=== PATIENT | female | born 1950 | race Caucasian/White ===

== ENCOUNTER 2018-04-29 01:09 | Inpatient (IN) | payer BC, OTHER ==
[2018-04-29 01:18] VITALS: BMI 27.3
--- NOTE | 2018-04-29 01:25 | PDOC ---
History of Present Illness - History of Present Illness Initial Comments: 04/29/18 01:42 The patient is a 67 year old female with PMH of dyslipidemia and HTN presented to ED complaining of nausea and vomiting. Approximately 3 hours ago she started having neck pain and vomited multiple times, it was non bloody non bilious. The patient states that she was in her normal state of health yesterday and her symptoms started suddenly. On arrival to ED, she is complaining of neck pain, stomach pain, N/V and states that she "doesn't feel her body". She denies fever, chills, palpitations, chest pain, changing her diet, sick contacts, diarrhea. Timing/Duration: 1-3 hours Severity: moderate Associated Symptoms: reports: headaches, nausea/vomiting, other (abdominal pain) <Gloria Cramer - Last Filed: 04/29/18 03:06> <Marshal Muñiz - Last Filed: 04/29/18 06:43> - General Chief Complaint: Nausea/Vomiting Stated Complaint: WEAKNESS,VOMITING Past History - Past Medical History HTN: Yes Hypercholesterolemia: Yes - Suicide/Smoking/Psychosocial Hx Smoking Status: No Smoking History: Never smoked Have you smoked in the past 12 months: No Number of Cigarettes Smoked Daily: 0 Cigars Per Day: 0 Information on smoking cessation initiated: No Hx Alcohol Use: No Drug/Substance Use Hx: No <Gloria Cramer - Last Filed: 04/29/18 03:06> <Marshal Muñiz - Last Filed: 04/29/18 06:43> - Past Medical History Allergies/Adverse Reactions: Allergies Allergy/AdvReac Type Severity Reaction Status Date / Time Penicillins Allergy Rash Verified 04/29/18 01:13 Home Medications: Ambulatory Orders Ciprofloxacin [Cipro -] 500 mg PO BID #14 tablet 06/20/11 Brimonidine Tartrate/Timolol [Combigan 0.2%-0.5% Eye Drops] 15 ml OP BID Brinzolamide [Azopt] 15 ml OU TID 04/29/18 Donepezil HCl 10 mg PO HS 04/29/18 Review of Systems - Review of Systems Able to Perform ROS?: Yes Constitutional: No: Symptoms Reported HEENTM: No: Symptoms Reported Respiratory: No: Symptoms reported Cardiac (ROS): No: Symptoms Reported ABD/GI: Yes: Symptoms Reported, See HPI, Nausea, Vomiting. No: Diarrhea : No: Symptoms Reported Musculoskeletal: Yes: Symptoms Reported, Neck Pain Integumentary: No: Symptoms Reported Neurological: Yes: Symptoms reported, Headache <EyadJavierteresitaGloria - Last Filed: 04/29/18 03:06> *Physical Exam - Vital Signs Last Vital Signs Temp Pulse Resp BP Pulse Ox 97.4 F L 52 L 18 174/70 H 95 04/29/18 01:13 04/29/18 01:13 04/29/18 01:13 04/29/18 01:13 04/29/18 01:13 - Physical Exam General Appearance: Yes: Nourished, Appropriately Dressed HEENT: positive: EOMI, MIKE, Normal Voice Neck: negative: Tender (mild tenderness to palpation) Respiratory/Chest: positive: Lungs Clear, Normal Breath Sounds. negative: Crackles, Wheezing Cardiovascular: positive: Regular Rhythm, S1, S2. negative: Murmur Gastrointestinal/Abdominal: positive: Soft, Decreased BS. negative: Guarding, Rebound, Tenderness Musculoskeletal: positive: Normal Inspection Neurologic: positive: Fully Oriented, Alert. negative: Facial Droop <JatinderShahidateresitaGloria - Last Filed: 04/29/18 03:06> - Vital Signs Last Vital Signs Temp Pulse Resp BP Pulse Ox 97.8 F 63 16 136/65 98 04/29/18 06:33 04/29/18 06:33 04/29/18 06:33 04/29/18 06:33 04/29/18 06:33 <Marshal Muñiz - Last Filed: 04/29/18 06:43> Moderate Sedation - Procedure Monitoring Vital Signs: Procedure Monitoring Vital Signs Temperature 97.4 F L 04/29/18 01:13 Pulse Rate 52 L 04/29/18 01:13 Respiratory Rate 18 04/29/18 01:13 Blood Pressure 174/70 H 04/29/18 01:13 O2 Sat by Pulse Oximetry (%) 95 04/29/18 01:13 <AliaAbebateresitaGloria - Last Filed: 04/29/18 03:06> - Procedure Monitoring Vital Signs: Procedure Monitoring Vital Signs Temperature 97.8 F 04/29/18 06:33 Pulse Rate 63 04/29/18 06:33 Respiratory Rate 16 04/29/18 06:33 Blood Pressure 136/65 04/29/18 06:33 O2 Sat by Pulse Oximetry (%) 98 04/29/18 06:33 <Marshal Muñiz - Last Filed: 04/29/18 06:43> ED Treatment Course - LABORATORY CBC & Chemistry Diagram: 04/29/18 01:34 04/29/18 01:34 <Gloria Cramer - Last Filed: 04/29/18 03:06> - LABORATORY CBC & Chemistry Diagram: 04/29/18 01:34 04/29/18 01:34 - ADDITIONAL ORDERS Additional order review: Laboratory Results 04/29/18 04/29/18 01:34 01:34 PT with INR 11.20 INR 0.95 Sodium 136 Potassium 3.5 Chloride 100 Carbon Dioxide 28 Anion Gap 8 BUN 21 H Creatinine 0.9 Creat Clearance w eGFR > 60 Random Glucose 213 H Calcium 9.0 Total Bilirubin 0.2 AST 24 ALT 30 Alkaline Phosphatase 74 Creatine Kinase 97 Troponin I < 0.02 Total Protein 7.3 Albumin 3.5 Lipase 2586 H 04/29/18 01:34 RBC 4.64 MCV 85.8 MCHC 34.9 RDW 13.1 MPV 9.9 Neutrophils % 61.0 Lymphocytes % 29.8 Monocytes % 6.1 Eosinophils % 2.1 Basophils % 1.0 - RADIOLOGY Radiology Studies Ordered: Category Date Time Status HEAD CT WITHOUT CONTRAST [CT] Stat CT Scan 04/29/18 02:26 Taken CHEST X-RAY PORTABLE* [RAD] Stat Radiology 04/29/18 01:38 Taken - Medications Given in the ED: ED Medications Discontinued Medications Generic Name Dose Route Start Last Admin Trade Name Freq PRN Reason Stop Dose Admin Al Hydroxide/Mg Hydroxide 30 ml 04/29/18 01:53 04/29/18 02:30 Mylanta Suspension - PO 04/29/18 01:54 30 ml ONCE ONE Administration Famotidine/Sodium Chloride 20 50 mls @ 100 mls/hr 04/29/18 01:53 04/29/18 02: 30 mg/ Miscellaneous IVPB 04/29/18 02:22 100 mls/hr ONCE ONE Administration Meclizine HCl 25 mg 04/29/18 02:35 04/29/18 03:01 Antivert - PO 04/29/18 02:36 25 mg ONCE ONE Administration Ondansetron HCl 4 mg 04/29/18 01:38 04/29/18 01:43 Zofran Injection IVPB 04/29/18 01:39 4 mg ONCE ONE Administration <Marshal Muñiz - Last Filed: 04/29/18 06:43> Medical Decision Making - Medical Decision Making 04/29/18 01:52 The patient presented to ED actively vomiting multiple times and complaining of neck pain and abdominal pain. We ordered EKG: NSR, bradycardia 56 bpm, nonsecific st changes in anterior leads, CBC, CMP, UA, cardiac profile, lipase and US of her abdomen. Differential diagnosis include gastroenteritis/cholecystitis/ACS/pancreatitis. 04/29/18 01:54 She was given NS and Zofran, Famotidine, Mylanta for nausea. 04/29/18 02:00 04/29/18 02:58 US nl, no cholelithiasis, obstruction, signs of pancreatitis. CTA was ordered for neck pain to r/o dissection with presentation of neck pain, weakness and N/ V. CBC with elevated WBC to 17, Lipase elevated to 2580, will add TG to collected labs, Amaris score low 2, we will microblog hospitalist for admission. <Gloria Cramer - Last Filed: 04/29/18 03:06> *DC/Admit/Observation/Transfer - Discharge Dispostion Decision to Admit order: Yes <Gloria Cramer - Last Filed: 04/29/18 03:06> <Marshal Muñiz - Last Filed: 04/29/18 06:43> Diagnosis at time of Disposition: Neck pain Pancreatitis Qualifiers: Chronicity: acute Pancreatitis type: other Acute pancreatitis complication: unspecified Qualified Code(s): K85.80 - Other acute pancreatitis without necrosis or infection
[2018-04-29] MEDS ORDERED: ONDANSETRON 4 MG/2 ML VIAL ONE (01:34)
[2018-04-29] MEDS ORDERED: ONDANSETRON 4 MG/2 ML VIAL IVPB ONE (01:38)
[2018-04-29 01:44] LABS: EOS % 2.1 % (0-4.5); HEMATOCRIT 39.8 % (32.4-45.2); HEMOGLOBIN 13.9 GM/dL (10.7-15.3); LYMPH % 29.8 % (8-40); MCH 29.9 pg (25.7-33.7); MCHC 34.9 g/dl (32.0-36.0); MEAN CELL VOLUME 85.8 fl (80-96); MEAN PLT VOLUME 9.9 fl (7.5-11.1); MONO % 6.1 % (3.8-10.2); PLATELET COUNT 360 K/MM3 (134-434); RBC 4.64 M/mm3 (3.60-5.2); RDW 13.1 % (11.6-15.6); WHITE BLOOD COUNT 17.8 K/mm3 (4.0-10.0)
[2018-04-29] MEDS ORDERED: FAMOTIDINE 20 MG/50 ML IVPB 20 MG in PREMIX 50 IVPB ONE (01:53)
[2018-04-29] MEDS ORDERED: MAG HYDROX/AL HYDROX/SIMETH -MYLANTA- ORAL SUSPENSION PO ONE (01:53)
--- NOTE | 2018-04-29 01:55 | PDOC ---
Attending Attestation - Resident Resident Name: Gloria Cramer - ED Attending Attestation I have performed the following: I have examined & evaluated the patient, The case was reviewed & discussed with the resident, I agree w/resident's findings & plan, Exceptions are as noted - HPI HPI: 04/29/18 01:54 67y F hx of HL, HTN, presents with n/v. Pt notes that approx 3 hers ago she had some neck pain, epgiastric pain, nausea/vomiting. denies any vision changes, dysarthria, focal weakness. but states she feels generally waek and her body feels heavy and 'doesnt feel her body'. pt endorses feeling lightheaded. denies any f/c, palpitations, cp, back pain, dairrhea, melena, bpr. GENERAL: The patient is awake, alert, and fully oriented, Nontoxic - in no acute distress. HEAD: Normocephalic, atraumatic. EYES: extraocular movements intact, sclera anicteric, conjunctiva clear, no nystagmus ENT: Normal voice, Moist mucous membranes. NECK: Normal range of motion, supple LUNGS: Breath sounds equal, clear to auscultation bilaterally. No wheezes, no rhonchi, no rales. HEART: Regular rate and rhythm, normal S1 and S2 without murmur, rub or gallop. ABDOMEN: Soft, nontender, normoactive bowel sounds. No guarding, no rebound. . No CVA tenderness EXTREMITIES: Normal range of motion, no edema. No clubbing or cyanosis. No cords, erythema, or tenderness. NEURO: Mental status: The patient is oriented x3. Cranial nerves: Cranial nerves II through XII are intact Motor: The upper extremities are 5 over 5 in all muscle groups. The lower extremities are 5 over 5 in all muscle groups. Negative pronator drift Sensation: Sensation is intact to light touch throughout. romberg negative Cerebellar: Sxatqn-ecfkyi-sghu is normal in both upper extremities. PSYCH: Normal mood, normal affect. SKIN: Warm, Dry, normal turgor, ddx is wide and includes but is not limited to vertigo, ?vertebral artery dissection, acs, pancreatitis, anemia, will ck cbc, cmp, trop, lipase will treat sypmtomatically with pepcid/maalox, zofran, will ck CTA neck and head - Physicial Exam PE: 05/03/18 07:25 see above - Medical Decision Making labs cw pancreatitis ct head neg will admit for further management Heart Score/ECG Review - ECG Impressions Comment:: 04/29/18 02:37 Twelve-lead EKG was performed and reviewed by me. There is normal sinus rhythm with a rate of [address] wave changes
[2018-04-29 02:06] LABS: INR 0.95 (0.83-1.09); PROTHROMBIN TIME (PATIENT) 11.2 SEC (9.7-13.0)
[2018-04-29] MEDS ORDERED: MAG HYDROX/AL HYDROX/SIMETH 30 ML UNIT-DOSE CUP ONE (02:22)
[2018-04-29] MEDS ORDERED: FAMOTIDINE 20 MG/50 ML IVPB 20 MG/50 ML MG IVPB ONE (02:22)
[2018-04-29] MEDS ORDERED: MECLIZINE HCL 25 MG TABLET (FP) PO ONE (02:35)
[2018-04-29] MEDS ORDERED: MECLIZINE HCL 25 MG TABLET (FP) ONE (02:36)
[2018-04-29 02:44] LABS: ALBUMIN 3.5 g/dl (3.4-5.0); ALK PHOS 74 U/L (45-117); ANION GAP 8 MMOL/L (8-16); BILIRUBIN,TOTAL 0.2 mg/dL (0.2-1); BLOOD UREA NITROGEN 21 mg/dL (7-18); CHLORIDE 100 mmol/L (98-107); CO2 28 mmol/L (21-32); CREATININE 0.9 mg/dL (0.55-1.3); GLUCOSE,RANDOM 213 mg/dL (74-106); LIPASE 2586 U/L (73-393); POTASSIUM 3.5 mmol/L (3.5-5.1); SGOT/AST 24 U/L (15-37); SGPT/ALT 30 U/L (13-61); SODIUM 136 mmol/L (136-145); TOT PROT 7.3 g/dl (6.4-8.2)
[2018-04-29] MEDS: LACTATED RINGERS SOLUTION 1,000 ML/1,000 ML INFUS.BAG IV SCH (03:22)
[2018-04-29] MEDS ORDERED: MORPHINE SULFATE 2 MG/ML VIAL IVPUSH PRN (04:02)
[2018-04-29] MEDS ORDERED: ONDANSETRON 4 MG/2 ML VIAL IVPUSH PRN (04:09)
[2018-04-29] MEDS ORDERED: hydrALAZINE HCL 20 MG/ML VIAL IVPUSH PRN (04:10)
--- NOTE | 2018-04-29 04:22 | HP ---
CHIEF COMPLAINT: nausea/vomiting PCP: HISTORY OF PRESENT ILLNESS: Patient is a 67 y/o F w/ PMHx HTN, HLD, presents w/ nausea and NBNB vomiting since 11 am on 04/28/18. Numerous episodes of violent, painful retching. Additionally c/o neck pain, abd pain, malaise, diffuse weakness, and inability to "feel my body." Additionally c/o vertiginous symptoms which may have been present chronically. Timeline of symptom onset is unclear as patient provides multiple mutually inconsistent histories. No fever, chills, CP, SOB, diarrhea, dysuria, no sick contacts. Had multiple episodes of vomiting and was screaming in pain in ED. N/V symptoms resolved with one dose of Zofran. On presentation, WBC 17.8, Lipase 2586, labs otherwise unremarkable. Abd US unremarkable. Patient was to undergo contrast CT and CTA neck with NCHCT but stated just prior to studies that she has severe contrast dye allergy. Underwent abd CT w/o contrast and NCHCT instead, results pending. Bedside doppler evaluation of carotid vessels was benign. Official carotid doppler study pending. ER course was notable for: (1) WBC 17.8 (2) Lipase 2586 (3) Recent Travel: PAST MEDICAL HISTORY: As per HPI PAST SURGICAL HISTORY: As per HPI Social History: Smoking: Alcohol: Drugs: Family History: Allergies Penicillins Allergy (Verified 04/29/18 01:13) Rash HOME MEDICATIONS: Home Medications Medication Instructions Recorded Ciprofloxacin [Cipro -] 500 mg PO BID #14 tablet 06/20/11 REVIEW OF SYSTEMS As per HPI PHYSICAL EXAMINATION Vital Signs - 24 hr 04/29/18 04/29/18 01:13 01:40 Temperature 97.4 F L 96.4 F L Pulse Rate 52 L Pulse Rate [ 57 L Right Radial] Respiratory 18 16 Rate Blood Pressure 174/70 H Blood Pressure 139/66 [Right Arm] O2 Sat by Pulse 95 95 Oximetry (%) GENERAL: A&Ox3, in moderate distress HEAD: NC/AT EYES: PERRLA, EOMI EARS, NOSE, THROAT: Ears normal, nares patent, oropharynx clear without exudates. Moist mucous membranes. NECK: No carotid bruit. Normal range of motion, supple without lymphadenopathy, JVD, or masses. LUNGS: CTA b/l HEART: RRR no m/r/g ABDOMEN: soft, non-distended, moderate epigastric tenderness UPPER EXTREMITIES: 2+ pulses, warm, well-perfused. No cyanosis. No clubbing. No peripheral edema. LOWER EXTREMITIES: 2+ pulses, warm, well-perfused. No calf tenderness. No peripheral edema. NEUROLOGICAL: machine deburrer, motor, sensory systems w/o focal deficit PSYCHIATRIC: Cooperative. Good eye contact. Appropriate mood and affect. SKIN: Warm, dry, normal turgor, no rashes or lesions noted, normal capillary refill Laboratory Results - last 24 hr 04/29/18 04/29/18 04/29/18 01:34 01:34 01:34 WBC 17.8 H RBC 4.64 Hgb 13.9 Hct 39.8 MCV 85.8 MCH 29.9 MCHC 34.9 RDW 13.1 Plt Count 360 MPV 9.9 Absolute Neuts (auto) 10.8 H Neutrophils % 61.0 Lymphocytes % 29.8 Monocytes % 6.1 Eosinophils % 2.1 Basophils % 1.0 Nucleated RBC % 0 PT with INR 11.20 INR 0.95 Sodium 136 Potassium 3.5 Chloride 100 Carbon Dioxide 28 Anion Gap 8 BUN 21 H Creatinine 0.9 Creat Clearance w eGFR > 60 Random Glucose 213 H Calcium 9.0 Total Bilirubin 0.2 AST 24 ALT 30 Alkaline Phosphatase 74 Creatine Kinase 97 Troponin I < 0.02 Total Protein 7.3 Albumin 3.5 Lipase 2586 H ASSESSMENT/PLAN: 67 y/o F w/ PMHx HTN, HLD p/w ~12 hours n/v, abd pain, neck pain. Lipase 2586, WBC 17.8, admitted for acute pancreatitis. #pancreatitis -NPO -LR @ 125 -morphine 2 q4h PRN -Zofran 4 q6h PRN -abd CT read pending -triglycerides pending #neck pain -carotid dopplers pending -cannot pursue CTA d/t dye allergy #vertigo -NCHCT read pending #HTN -unmedicated at home -no PO meds -no AV dheeraj blocking agents as patient has been mildly bradycardic -hydralazine PRN to maintain SBP < 160 #HLD -unmedicated at home -lipids pending #FEN -LR @ 125 -monitor and replete lytes -strictly NPO #PPx -DVT: heparin subq -GI: not indicated #code -full #dispo -admit to med/surg Visit type - Emergency Visit Emergency Visit: Yes Care time: The patient presented to the Emergency Department on the above date and was hospitalized for further evaluation of their emergent condition. - New Patient This patient is new to me today: Yes Date on this admission: 04/29/18 - Critical Care Critical Care patient: No
[2018-04-29 04:54] LABS: URINE APPEARANCE CLEAR; URINE BILIRUBIN NEGATIVE (<2.0 mg/dL); URINE COLOR LTYELLOW; URINE GLUCOSE (UA) 1+ (NEGATIVE); URINE KETONE NEGATIVE (NEGATIVE); URINE LEUK ESTERASE NEGATIVE (NEGATIVE); URINE NITRITE NEGATIVE (NEGATIVE); URINE PROTEIN NEGATIVE (NEGATIVE); URINE UROBILINOGEN NEGATIVE mg/dL (0.2-1.0)
--- NOTE | 2018-04-29 05:32 | PN ---
Teaching Attending Note Name of Resident: Tristan Villalobos ATTENDING PHYSICIAN STATEMENT I saw and evaluated the patient. I reviewed the resident's note and discussed the case with the resident. I agree with the resident's findings and plan as documented. SUBJECTIVE: Seen and examined; please see resident note for further historical details. This is a 67 y/o CF with a PMH significant for hypertension, hyperlipidemia, and glaucoma. She presents with nausea and vomitting following neck pain and this was all sudden onset; multiple episodes of bilious vomitting at home associated , nothing making better or worse. Abdomen is only tender to palpation and she denies any chest, abdomen pain at this time, only endorsing nausea and neck pain. Neck pain is worse with palpation and movement. No history of recent trauma, chiropractic manipulation, etc. There was concern in the ER for carotid A. dissection and when patient was going for head CT she was noted to have an allergy to contract so CT head and neck cancelled and US carotid b/l ordered. CT head was also ordered; it was completed but not read yet. CT abdomen and pelvis prelim without pathology which is equivocal to the CT (normal CBD, no stones). She was found to have an elevated lipase to 2500 range consistent with pancreatitis levels. 10 sys ROS done and negative aside from HPI PMH and PSH reviewed FH asked and noncontributory Socially denies alcoholabuse, tobacco abuse 10 sys ROS done and negative aside from HPI OBJECTIVE: VS, labs, imaging reviewed AAO, NAD, resting in bed in ER RRR s1/2 no mgr Tender in epigastrium, ND, +BS Neck is painful to move in all 4 directions with muscle pain elicited b/l to palpation. No LN. Trachea midline, no JVD No edema, +pulses CN2-12 wnl, no fnd Cooperative with normal mood and appropriate affect Labs show WBC 17, lipase 2586, rest of LFTs normal, Chemistry is unremarkable aside from the glucose of 213 CT head pending final read Preliminary read of CT abdomen pelvis reviewed Preliminary read of US with unremarkable anatomy ASSESSMENT AND PLAN: Mrs. Smith is a 67 y/o female presenting to the hospital with headache and neck pain with dizziness found to have an elevated lipase to levels consistent with pancreatitis alongside leukocytosis. 1) Likely acute pancreatitis -Patient's lipase >5 times upper limit of normal with unremarkable appearance of the pancreas on the CT and US. Elevated lipase this high in a non- pancreatic cause would be very rare but occurs n patients with renal disease ( which she doesnt have), cholecystitis (doesn't have), esophagitis (does't have) , and malignancy. Could be a delayed onset picture, as well. Can of course consider further imaging, but no need for STAT MRCP, etc. -Hydrating, NPO for now but advance as tolerated after a day of bowel rest. Not really having abdominal pain at rest but will get somewhat uncomfortable with palpation. Pain and nausea PRN management -Check lipid pannel. Reconcile medication list including OTCs. -No source of infection on imaging, etc. so we will avoid antibiotics at this time 2) Hypothermia -PRN warming; etiology likely related to underlying process 3) Neck Pain -No LN on palpation; bedside US exam was limited but not grossly abnormal. Will obtain carotid doppler given the concern for dissection listed in the prior notes, but her history isn't necessarily consistent with a vineet dissection picture. Could have pulled a muscle with wretching making this worse. She is not having issues swallowing, etc. Monitor exam, PRN pain control, and followup on imaging. 4) Dizziness -Due to neck pain and vomitting I didn't ambulate her. Not dizzy at rest, not endorsing baseline symptoms of vertigo. ER ordered head CT which is pending for r/o f any cerebellar process. If concern persists and negative CT consider further imaging. I should note she never syncopized, etc. She is not dizzy at rest. Carotid dopplers would be revealing. Monitor on tele for any arrhythmias for 24 hours then DC. May also simplybe from #1 with vomitting. Check orthostatics. 5) HTN -Unmedicated at home; monitor and startamlodipine if needed in accordance with GDMT 6) HLD -No home meds; checking lipids for #1 which will also help with this. 7) Leukocytosis -No source identified; with hypothermia concern for infection but no source is identified. Checking ESR and CRP, followup blood cultures. Neck pain isn't classically meningeal to any stretch, CT abd preliminarily is negative, no rashes or skin breakdown, no dysuria with negative UA. If persistent/worsening consider further workup. FENA -LR@125 -PRN monitor/replete -NPO -As tolerated Full Code
[2018-04-29] MEDS: HEPARIN NA (PORCINE) 5,000 UNITS/ML 1ML VIAL SQ SCH ×3 (06:07→22:18)
[2018-04-29 07:47] LABS: BASO % 0.8 % (0-2.0); EOS % 0.1 % (0-4.5); HEMATOCRIT 38.9 % (32.4-45.2); HEMOGLOBIN 12.8 GM/dL (10.7-15.3); LYMPH % 18.6 % (8-40); MCH 28.6 pg (25.7-33.7); MEAN CELL VOLUME 86.9 fl (80-96); MEAN PLT VOLUME 9.9 fl (7.5-11.1); MONO % 2.4 % (3.8-10.2); NEUT % 78.1 % (42.8-82.8); PLATELET COUNT 264 K/MM3 (134-434); RBC 4.48 M/mm3 (3.60-5.2); RDW 13.3 % (11.6-15.6); WHITE BLOOD COUNT 10.9 K/mm3 (4.0-10.0)
[2018-04-29 08:27] LABS: CHOLESTEROL 227 mg/dL (50-200); HDL CHOLESTEROL 49 mg/dL (40-60); TRIGLYCERIDES 118 mg/dL (0-150)
[2018-04-29 08:39] LABS: ALBUMIN 3.3 g/dl (3.4-5.0); ALK PHOS 66 U/L (45-117); ANION GAP 9 MMOL/L (8-16); BILIRUBIN,TOTAL 0.3 mg/dL (0.2-1); BLOOD UREA NITROGEN 17 mg/dL (7-18); CALCIUM 8.3 mg/dL (8.5-10.1); CHLORIDE 103 mmol/L (98-107); CO2 25 mmol/L (21-32); CREATININE 0.7 mg/dL (0.55-1.3); GLUCOSE,RANDOM 121 mg/dL (74-106); MAGNESIUM 1.9 mg/dL (1.8-2.4); PHOSPHOROUS 3.2 mg/dL (2.5-4.9); POTASSIUM 3.6 mmol/L (3.5-5.1); SGOT/AST 33 U/L (15-37); SGPT/ALT 41 U/L (13-61); SODIUM 137 mmol/L (136-145); TOT PROT 6.6 g/dl (6.4-8.2)
[2018-04-29 08:43] LABS: INR 0.94 (0.83-1.09); PROTHROMBIN TIME (PATIENT) 11.1 SEC (9.7-13.0)
[2018-04-29 08:46] LABS: ACTIVATED PTT 26.7 SECONDS (25.2-36.5)
--- NOTE | 2018-04-29 10:13 | EKG ---
Test Reason : Blood Pressure : / mmHG Vent. Rate : 056 BPM Atrial Rate : 056 BPM P-R Int : 158 ms QRS Dur : 084 ms QT Int : 482 ms P-R-T Axes : 065 093 059 degrees QTc Int : 465 ms SINUS BRADYCARDIA RIGHTWARD AXIS NONSPECIFIC ST AND T WAVE ABNORMALITY ABNORMAL ECG Confirmed by HORTENCIA PALMER MD ([id number]) on 04/29/2018 10:12:51 AM Referred By: Confirmed By:HORTENCIA PALMER MD
--- NOTE | 2018-04-29 15:27 | PN ---
Physical Exam: SUBJECTIVE: Patient seen and examined OBJECTIVE: Vital Signs Period Temp Pulse Resp BP Sys/Ervin Pulse Ox Last 24 Hr 95.6 F-98.6 F 52-73 16-18 110-174/55-77 95-98 GENERAL: The patient is awake, alert, and fully oriented, in no acute distress. HEAD: Normal with no signs of trauma. EYES: PERRL, extraocular movements intact, sclera anicteric, conjunctiva clear. No ptosis. ENT: Ears normal, nares patent, oropharynx clear without exudates, moist mucous membranes. NECK: Trachea midline, full range of motion, supple. LUNGS: Breath sounds equal, clear to auscultation bilaterally, no wheezes, no crackles, no accessory muscle use. HEART: Regular rate and rhythm, S1, S2 without murmur, rub or gallop. ABDOMEN: Soft, nontender, nondistended, normoactive bowel sounds, no guarding, no rebound, no hepatosplenomegaly, no masses. EXTREMITIES: 2+ pulses, warm, well-perfused, no edema. NEUROLOGICAL: Cranial nerves II through XII grossly intact. Normal speech, gait not observed. PSYCH: Normal mood, normal affect. SKIN: Warm, dry, normal turgor, no rashes or lesions noted Laboratory Results - last 24 hr 04/29/18 04/29/18 04/29/18 01:34 01:34 01:34 WBC 17.8 H RBC 4.64 Hgb 13.9 Hct 39.8 MCV 85.8 MCH 29.9 MCHC 34.9 RDW 13.1 Plt Count 360 MPV 9.9 Absolute Neuts (auto) 10.8 H Neutrophils % 61.0 Lymphocytes % 29.8 Monocytes % 6.1 Eosinophils % 2.1 Basophils % 1.0 Nucleated RBC % 0 Platelet Comment ESR PT with INR 11.20 INR 0.95 PTT (Actin FS) Sodium 136 Potassium 3.5 Chloride 100 Carbon Dioxide 28 Anion Gap 8 BUN 21 H Creatinine 0.9 Creat Clearance w eGFR > 60 Random Glucose 213 H Calcium 9.0 Phosphorus Magnesium Total Bilirubin 0.2 AST 24 ALT 30 Alkaline Phosphatase 74 Creatine Kinase 97 Troponin I < 0.02 Total Protein 7.3 Albumin 3.5 Triglycerides Cholesterol Total LDL Cholesterol HDL Cholesterol Lipase 2586 H Urine Color Urine Appearance Urine pH Ur Specific [place] Urine Protein Urine Glucose (UA) Urine Ketones Urine Blood Urine Nitrite Urine Bilirubin Urine Urobilinogen Ur Leukocyte Esterase 04/29/18 04/29/18 04/29/18 04:41 05:17 06:00 WBC RBC Hgb Hct MCV MCH MCHC RDW Plt Count MPV Absolute Neuts (auto) Neutrophils % Lymphocytes % Monocytes % Eosinophils % Basophils % Nucleated RBC % Platelet Comment ESR PT with INR INR PTT (Actin FS) Sodium 137 Potassium 3.6 Chloride 103 Carbon Dioxide 25 Anion Gap 9 BUN 17 Creatinine 0.7 Creat Clearance w eGFR > 60 Random Glucose 121 H Calcium 8.3 L Phosphorus 3.2 Magnesium 1.9 Total Bilirubin 0.3 AST 33 ALT 41 Alkaline Phosphatase 66 Creatine Kinase Troponin I Total Protein 6.6 Albumin 3.3 L Triglycerides 122 Cholesterol Total LDL Cholesterol HDL Cholesterol Lipase Urine Color Ltyellow Urine Appearance Clear Urine pH 7.0 Ur Specific [place] 1.015 Urine Protein Negative Urine Glucose (UA) 1+ H Urine Ketones Negative Urine Blood Negative Urine Nitrite Negative Urine Bilirubin Negative Urine Urobilinogen Negative Ur Leukocyte Esterase Negative 04/29/18 04/29/18 04/29/18 06:00 07:05 07:05 WBC 10.9 H RBC 4.48 Hgb 12.8 Hct 38.9 MCV 86.9 MCH 28.6 MCHC 33.0 RDW 13.3 Plt Count 264 D MPV 9.9 Absolute Neuts (auto) 8.5 H Neutrophils % 78.1 D Lymphocytes % 18.6 D Monocytes % 2.4 L Eosinophils % 0.1 D Basophils % 0.8 Nucleated RBC % 0 Platelet Comment No clumping noted ESR 25 PT with INR INR PTT (Actin FS) Sodium Potassium Chloride Carbon Dioxide Anion Gap BUN Creatinine Creat Clearance w eGFR Random Glucose Calcium Phosphorus Magnesium Total Bilirubin AST ALT Alkaline Phosphatase Creatine Kinase Troponin I Total Protein Albumin Triglycerides 118 Cholesterol 227 H Total LDL Cholesterol 157 H HDL Cholesterol 49 Lipase Urine Color Urine Appearance Urine pH Ur Specific [place] Urine Protein Urine Glucose (UA) Urine Ketones Urine Blood Urine Nitrite Urine Bilirubin Urine Urobilinogen Ur Leukocyte Esterase 04/29/18 04/29/18 07:05 07:05 WBC RBC Hgb Hct MCV MCH MCHC RDW Plt Count MPV Absolute Neuts (auto) Neutrophils % Lymphocytes % Monocytes % Eosinophils % Basophils % Nucleated RBC % Platelet Comment ESR PT with INR 11.10 INR 0.94 PTT (Actin FS) 26.7 Sodium Potassium Chloride Carbon Dioxide Anion Gap BUN Creatinine Creat Clearance w eGFR Random Glucose Calcium Phosphorus Magnesium Total Bilirubin AST ALT Alkaline Phosphatase Creatine Kinase Troponin I < 0.02 Total Protein Albumin Triglycerides Cholesterol Total LDL Cholesterol HDL Cholesterol Lipase Urine Color Urine Appearance Urine pH Ur Specific [place] Urine Protein Urine Glucose (UA) Urine Ketones Urine Blood Urine Nitrite Urine Bilirubin Urine Urobilinogen Ur Leukocyte Esterase Active Medications Generic Name Dose Route Start Last Admin Trade Name Freq PRN Reason Stop Dose Admin Heparin Sodium (Porcine) 5,000 unit 04/29/18 06:00 04/29/18 13:28 Heparin - SQ Not Given TID ABBY Hydralazine HCl 10 mg 04/29/18 04:10 Apresoline Injection - IVPUSH Q4H PRN SBP > 160 Lactated Ringer's 1,000 ml in 1,000 mls @ 125 mls/hr 04/29/18 03:15 04/29/18 03:22 Lactated Ringers Solution IV 125 mls/hr ASDIR ABBY Administration Morphine Sulfate 2 mg 04/29/18 04:02 Morphine Sulfate IVPUSH Q4H PRN PAIN LEVEL 6-10 Ondansetron HCl 4 mg 04/29/18 04:09 Zofran Injection IVPUSH Q6H PRN NAUSEA ASSESSMENT/PLAN:
--- NOTE | 2018-04-29 17:34 | PN ---
Teaching Attending Note Name of Resident: Christopher Squires ATTENDING PHYSICIAN STATEMENT I saw and evaluated the patient. I reviewed the resident's note and discussed the case with the resident. I agree with the resident's findings and plan as documented. SUBJECTIVE: patient still with abdominal pain but improved. No cp or sob OBJECTIVE: Gen: nad CV: rrr w/o m/r/g Pulm: ctab w/o w/r/r Abd: +bs, s/nd, TTP in epigastric region Ext: no c/c/e ASSESSMENT AND PLAN: 1. Pancreatitis 2. HTN 3. HLD 4. Dementia -npo -aggressive hydration with LR -pain control -trend lipase -advance diet as tolerated -not on HTN on HLD medications, will follow up -hold donepezil currently Problem List - Problems (1) HLD (hyperlipidemia) Code(s): E78.5 - HYPERLIPIDEMIA, UNSPECIFIED (2) HTN (hypertension) Code(s): I10 - ESSENTIAL (PRIMARY) HYPERTENSION (3) Dementia Code(s): F03.90 - UNSPECIFIED DEMENTIA WITHOUT BEHAVIORAL DISTURBANCE (4) Pancreatitis Code(s): K85.90 - ACUTE PANCREATITIS WITHOUT NECROSIS OR INFECTION, UNSP Qualifiers: Chronicity: acute Pancreatitis type: other Acute pancreatitis complication: unspecified Qualified Code(s): K85.80 - Other acute pancreatitis without necrosis or infection
[2018-04-30] MEDS: LACTATED RINGERS SOLUTION 1,000 ML/1,000 ML INFUS.BAG IV SCH ×2 (00:05→05:48)
[2018-04-30] MEDS: HEPARIN NA (PORCINE) 5,000 UNITS/ML 1ML VIAL SQ SCH ×3 (05:48→22:03)
[2018-04-30 06:41] LABS: BASO % 1.2 % (0-2.0); EOS % 2.9 % (0-4.5); HEMATOCRIT 40.1 % (32.4-45.2); HEMOGLOBIN 13.1 GM/dL (10.7-15.3); LYMPH % 25.1 % (8-40); MCH 28.4 pg (25.7-33.7); MCHC 32.7 g/dl (32.0-36.0); MEAN CELL VOLUME 86.6 fl (80-96); MEAN PLT VOLUME 10.2 fl (7.5-11.1); MONO % 6.2 % (3.8-10.2); NEUT % 64.6 % (42.8-82.8); PLATELET COUNT 254 K/MM3 (134-434); RBC 4.63 M/mm3 (3.60-5.2); RDW 13.2 % (11.6-15.6); WHITE BLOOD COUNT 10.6 K/mm3 (4.0-10.0)
[2018-04-30 06:59] LABS: ALBUMIN 3.2 g/dl (3.4-5.0); ALK PHOS 66 U/L (45-117); ANION GAP 7 MMOL/L (8-16); BILIRUBIN,TOTAL 0.4 mg/dL (0.2-1); BLOOD UREA NITROGEN 11 mg/dL (7-18); CALCIUM 8.5 mg/dL (8.5-10.1); CHLORIDE 104 mmol/L (98-107); CO2 28 mmol/L (21-32); CREATININE 0.7 mg/dL (0.55-1.3); GLUCOSE,RANDOM 81 mg/dL (74-106); LIPASE 721 U/L (73-393); POTASSIUM 3.5 mmol/L (3.5-5.1); SGOT/AST 26 U/L (15-37); SGPT/ALT 35 U/L (13-61); SODIUM 139 mmol/L (136-145); TOT PROT 6.6 g/dl (6.4-8.2)
--- NOTE | 2018-04-30 11:34 | PN ---
Progress Note, Physician Chief Complaint: Ms Smith complains of sore throat. Denies cp, sob, n/v. Asking to eat. - Current Medication List Current Medications: Active Medications Heparin Sodium (Porcine) (Heparin -) 5,000 unit SQ TID REPLACED BY [facility] Last Admin: 04/30/18 05:48 Dose: 5,000 unit Hydralazine HCl (Apresoline Injection -) 10 mg IVPUSH Q4H PRN PRN Reason: SBP > 160 Lactated Ringer's (Lactated Ringers Solution) 1,000 ml in 1,000 mls @ 125 mls/ hr IV ASDIR REPLACED BY [facility] Last Admin: 04/30/18 05:48 Dose: 125 mls/hr Morphine Sulfate (Morphine Sulfate) 2 mg IVPUSH Q4H PRN PRN Reason: PAIN LEVEL 6-10 Ondansetron HCl (Zofran Injection) 4 mg IVPUSH Q6H PRN PRN Reason: NAUSEA - Objective Vital Signs: Vital Signs Temperature 36.9 C 04/30/18 06:00 Pulse Rate 67 04/30/18 06:00 Respiratory Rate 20 04/30/18 06:00 Blood Pressure 127/60 04/30/18 06:00 O2 Sat by Pulse Oximetry (%) 98 04/29/18 21:00 Constitutional: Yes: Well Nourished, No Distress, Calm Cardiovascular: Yes: Regular Rate and Rhythm. No: Gallop, Murmur, Rub Respiratory: Yes: Regular, CTA Bilaterally. No: Rales, Rhonchi, Wheezes Gastrointestinal: Yes: Normal Bowel Sounds, Soft. No: Distention, Tenderness Extremities: Yes: WNL Edema: No Labs: CBC, BMP 04/30/18 05:30 04/30/18 05:30 INR, PTT INR 0.94 (0.83-1.09) 04/29/18 07:05 Problem List - Problems (1) Pancreatitis Assessment/Plan: -much improved -advance diet -if tolerates regular diet, stop IVF Code(s): K85.90 - ACUTE PANCREATITIS WITHOUT NECROSIS OR INFECTION, UNSP Qualifiers: Chronicity: acute Pancreatitis type: other Acute pancreatitis complication: unspecified Qualified Code(s): K85.80 - Other acute pancreatitis without necrosis or infection (2) HLD (hyperlipidemia) Assessment/Plan: -outpatient follow up Code(s): E78.5 - HYPERLIPIDEMIA, UNSPECIFIED (3) HTN (hypertension) Assessment/Plan: -controlled Code(s): I10 - ESSENTIAL (PRIMARY) HYPERTENSION (4) Dementia Assessment/Plan: -will restart donepezil Code(s): F03.90 - UNSPECIFIED DEMENTIA WITHOUT BEHAVIORAL DISTURBANCE
[2018-04-30] MEDS: ACETAMINOPHEN 325 MG TABLET (FP) PO PRN (16:13)
[2018-04-30] MEDS ORDERED: PATIENT'S OWN MEDICATION (NON-FORMULARY) (Brinzolamide [Azopt] 15 ML) OU SCH (22:00)
[2018-04-30] MEDS ORDERED: PATIENT'S OWN MEDICATION (NON-FORMULARY) (Brimonidine Tartrate/Timolol [Combigan 0.2%-0.5% OP SCH (22:00)
[2018-04-30] MEDS: BRIMONIDINE TARTRATE 0.2% OPHTHALMIC 5 ML BOTTLE OU SCH (22:01)
[2018-04-30] MEDS: TIMOLOL 0.5% OPHTHALMIC SOL 5 ML BOTTLE OU SCH (22:02)
[2018-04-30] MEDS: DONEPEZIL HCL 10 MG TABLET (FP) PO SCH (22:03)
[2018-05-01] MEDS: HEPARIN NA (PORCINE) 5,000 UNITS/ML 1ML VIAL SQ SCH ×3 (05:39→21:32)
[2018-05-01] MEDS: BENZOCAINE/MENTH/CETYLPYRD CL 1 EACH LOZENGE MM PRN ×2 (06:33→20:17)
[2018-05-01 06:34] LABS: BASO % 1.2 % (0-2.0); EOS % 5.5 % (0-4.5); HEMATOCRIT 37.2 % (32.4-45.2); LYMPH % 35.7 % (8-40); MCH 28.3 pg (25.7-33.7); MCHC 32.3 g/dl (32.0-36.0); MEAN CELL VOLUME 87.4 fl (80-96); MEAN PLT VOLUME 10.1 fl (7.5-11.1); MONO % 8.7 % (3.8-10.2); NEUT % 48.9 % (42.8-82.8); PLATELET COUNT 239 K/MM3 (134-434); RBC 4.26 M/mm3 (3.60-5.2); RDW 13.5 % (11.6-15.6); WHITE BLOOD COUNT 7.9 K/mm3 (4.0-10.0)
[2018-05-01 07:50] LABS: ALK PHOS 58 U/L (45-117); ANION GAP 10 MMOL/L (8-16); BILIRUBIN,DIRECT 0.1 mg/dL (0.0-0.2); BILIRUBIN,TOTAL 0.4 mg/dL (0.2-1); BLOOD UREA NITROGEN 8 mg/dL (7-18); CALCIUM 8.5 mg/dL (8.5-10.1); CHLORIDE 106 mmol/L (98-107); CO2 26 mmol/L (21-32); CREATININE 0.6 mg/dL (0.55-1.3); GLUCOSE,RANDOM 88 mg/dL (74-106); LIPASE 404 U/L (73-393); PHOSPHOROUS 3.7 mg/dL (2.5-4.9); POTASSIUM 3.9 mmol/L (3.5-5.1); SGOT/AST 28 U/L (15-37); SGPT/ALT 35 U/L (13-61); SODIUM 142 mmol/L (136-145)
--- NOTE | 2018-05-01 11:06 | PN ---
Progress Note, Physician Chief Complaint: Ms Smith had some abdominal pain with eating this am but tolerated a regular diet last night. No cp, sob, n/v. - Current Medication List Current Medications: Active Medications Acetaminophen (Tylenol -) 650 mg PO Q4H PRN PRN Reason: FEVER Last Admin: 04/30/18 16:13 Dose: 650 mg Benzocaine/Menthol (Cepacol Lozenge -) 1 each MM PRN PRN PRN Reason: SORE THROAT Last Admin: 05/01/18 06:33 Dose: 1 each Brimonidine Tartrate (Alphagan 0.2% -) 1 drop OU BID [facility] Last Admin: 04/30/18 22:01 Dose: 1 drop Donepezil HCl (Aricept -) 10 mg PO HS [facility] Last Admin: 04/30/18 22:03 Dose: 10 mg Heparin Sodium (Porcine) (Heparin -) 5,000 unit SQ TID [facility] Last Admin: 05/01/18 05:39 Dose: 5,000 unit Hydralazine HCl (Apresoline Injection -) 10 mg IVPUSH Q4H PRN PRN Reason: SBP > 160 Non-Formulary Medication (Brinzolamide [Azopt]) 15 ml OU TID [facility] Ondansetron HCl (Zofran Injection) 4 mg IVPUSH Q6H PRN PRN Reason: NAUSEA Timolol Maleate (Timoptic 0.5%) 1 drop OU BID [facility] Last Admin: 04/30/18 22:02 Dose: 1 drop - Objective Vital Signs: Vital Signs Temperature 37.1 C 05/01/18 05:49 Pulse Rate 59 L 05/01/18 05:49 Respiratory Rate 20 05/01/18 05:49 Blood Pressure 135/55 L 05/01/18 05:49 O2 Sat by Pulse Oximetry (%) 96 04/30/18 21:00 Constitutional: Yes: Well Nourished, No Distress, Calm Cardiovascular: Yes: Regular Rate and Rhythm. No: Gallop, Murmur, Rub Respiratory: Yes: Regular, CTA Bilaterally. No: Rales, Rhonchi, Wheezes Gastrointestinal: Yes: Normal Bowel Sounds, Soft. No: Distention, Tenderness Extremities: Yes: WNL Edema: No Labs: CBC, BMP 05/01/18 05:30 05/01/18 05:30 INR, PTT INR 0.94 (0.83-1.09) 04/29/18 07:05 Problem List - Problems (1) Pancreatitis Code(s): K85.90 - ACUTE PANCREATITIS WITHOUT NECROSIS OR INFECTION, UNSP Qualifiers: Chronicity: acute Pancreatitis type: other Acute pancreatitis complication: unspecified Qualified Code(s): K85.80 - Other acute pancreatitis without necrosis or infection (2) HLD (hyperlipidemia) Code(s): E78.5 - HYPERLIPIDEMIA, UNSPECIFIED (3) HTN (hypertension) Code(s): I10 - ESSENTIAL (PRIMARY) HYPERTENSION (4) Dementia Code(s): F03.90 - UNSPECIFIED DEMENTIA WITHOUT BEHAVIORAL DISTURBANCE Assessment/Plan (1) Pancreatitis Assessment/Plan: -had some abdominal pain with breakfast this morning -decrease LR to 75ml/hr -will continue regular diet to see if tolerates -if does not, will place back on clear liquid -check lipase in am -if improved, discharge tomorrow Code(s): K85.90 - ACUTE PANCREATITIS WITHOUT NECROSIS OR INFECTION, UNSP Qualifiers: Chronicity: acute Pancreatitis type: other Acute pancreatitis complication: unspecified Qualified Code(s): K85.80 - Other acute pancreatitis without necrosis or infection (2) HLD (hyperlipidemia) Assessment/Plan: -outpatient follow up Code(s): E78.5 - HYPERLIPIDEMIA, UNSPECIFIED (3) HTN (hypertension) Assessment/Plan: -controlled Code(s): I10 - ESSENTIAL (PRIMARY) HYPERTENSION (4) Dementia Assessment/Plan: -continue donepezil Code(s): F03.90 - UNSPECIFIED DEMENTIA WITHOUT BEHAVIORAL DISTURBANCE
[2018-05-01] MEDS: TIMOLOL 0.5% OPHTHALMIC SOL 5 ML BOTTLE OU SCH ×2 (11:09→21:32)
[2018-05-01] MEDS: BRIMONIDINE TARTRATE 0.2% OPHTHALMIC 5 ML BOTTLE OU SCH ×2 (11:09→21:33)
[2018-05-01] MEDS: LACTATED RINGERS SOLUTION 1,000 ML/1,000 ML INFUS.BAG IV SCH (16:08)
[2018-05-01] MEDS ORDERED: PT OWN MED DRAWER 7, Y5N ONE (20:13)
[2018-05-01] MEDS: ACETAMINOPHEN 325 MG TABLET (FP) PO PRN (20:14)
[2018-05-01] MEDS: DONEPEZIL HCL 10 MG TABLET (FP) PO SCH (21:32)
[2018-05-02] MEDS: HEPARIN NA (PORCINE) 5,000 UNITS/ML 1ML VIAL SQ SCH (05:25)
[2018-05-02] MEDS: ACETAMINOPHEN 325 MG TABLET (FP) PO PRN ×2 (06:16→09:45)
[2018-05-02 06:51] LABS: BASO % 1.4 % (0-2.0); EOS % 6.5 % (0-4.5); HEMATOCRIT 36.2 % (32.4-45.2); HEMOGLOBIN 11.8 GM/dL (10.7-15.3); LYMPH % 40.2 % (8-40); MCH 28.6 pg (25.7-33.7); MCHC 32.6 g/dl (32.0-36.0); MEAN CELL VOLUME 87.8 fl (80-96); MEAN PLT VOLUME 10.1 fl (7.5-11.1); MONO % 9.7 % (3.8-10.2); NEUT % 42.2 % (42.8-82.8); PLATELET COUNT 227 K/MM3 (134-434); RBC 4.12 M/mm3 (3.60-5.2); RDW 13.4 % (11.6-15.6); WHITE BLOOD COUNT 7.4 K/mm3 (4.0-10.0)
[2018-05-02 07:18] LABS: ANION GAP 9 MMOL/L (8-16); BLOOD UREA NITROGEN 9 mg/dL (7-18); CALCIUM 8.1 mg/dL (8.5-10.1); CHLORIDE 105 mmol/L (98-107); CO2 25 mmol/L (21-32); CREATININE 0.6 mg/dL (0.55-1.3); GLUCOSE,RANDOM 86 mg/dL (74-106); LIPASE 539 U/L (73-393); PHOSPHOROUS 3.8 mg/dL (2.5-4.9); POTASSIUM 3.7 mmol/L (3.5-5.1); SODIUM 139 mmol/L (136-145)
[2018-05-02] MEDS ORDERED: PT OWN MED DRAWER 7, Y5N ONE (09:22)
[2018-05-02 09:43] VITALS: BP 152/62; PULSE 62; TEMP 98.6
[2018-05-02] MEDS: TIMOLOL 0.5% OPHTHALMIC SOL 5 ML BOTTLE OU SCH (09:44)
[2018-05-02] MEDS: LACTATED RINGERS SOLUTION 1,000 ML/1,000 ML INFUS.BAG IV SCH (09:44)
[2018-05-02] MEDS: BRIMONIDINE TARTRATE 0.2% OPHTHALMIC 5 ML BOTTLE OU SCH (09:44)
[2018-05-02] MEDS: BENZOCAINE/MENTH/CETYLPYRD CL 1 EACH LOZENGE MM PRN (09:46)
--- NOTE | 2018-05-02 12:05 | DS ---
Physical Exam: SUBJECTIVE: Patient seen and examined at bedside. No overnight events. No new complaints. Abdominal pain improved. Tolerating regular diet. Eager to go home. Denies CP,DEL ROSARIO, SOB, abdominal pain, nausea or vomiting. OBJECTIVE: Vital Signs Period Temp Pulse Resp BP Sys/Ervin Pulse Ox Last 24 Hr 98.4 F-100.4 F 56-77 2-20 127-156/54-80 98 PHYSICAL EXAM Gen: nad CV: rrr w/o m/r/g Pulm: ctab w/o w/r/r Abd: +bs, s/nt/nd Ext: no c/c/e LABS Laboratory Results - last 24 hr 05/02/18 05/02/18 05:30 05:30 WBC 7.4 RBC 4.12 Hgb 11.8 Hct 36.2 MCV 87.8 MCH 28.6 MCHC 32.6 RDW 13.4 Plt Count 227 MPV 10.1 Absolute Neuts (auto) 3.1 Neutrophils % 42.2 L Lymphocytes % 40.2 H Monocytes % 9.7 Eosinophils % 6.5 H Basophils % 1.4 Nucleated RBC % 0 Sodium 139 Potassium 3.7 Chloride 105 Carbon Dioxide 25 Anion Gap 9 BUN 9 Creatinine 0.6 Creat Clearance w eGFR > 60 Random Glucose 86 Calcium 8.1 L Phosphorus 3.8 Magnesium 2.0 Lipase 539 H HOSPITAL COURSE: 67 y/o F w/ PMHx HTN, HLD, presents w/ nausea and NBNB vomiting found to have acute pancreatitis. CT imaging did not show classic findings for acute pancreatitis however classic pain with significantly elevated Lipase.Work up cause was unreveiling. No ETOH, gallstones, TG only mildly elevated, and no meds that known to cause pancreatitis. She was made NPO, aggressively fluid resuscitated and pain control with morphine. Pain improved and diet was advanced. She tolerated regular diet with minimal abdominal pain 24hrs. Lipase improved. She is instructed to resume home medications as previously prescribed. She is stable for safe discharge home. Will follow up with PCP and Dr. Garcia in one week. Date of Admission:04/29/18 Date of Discharge: 05/02/18 Minutes to complete discharge: 44 Discharge Summary Reason For Visit: NECK PAIN PANCREATITIS Current Active Problems Neck pain (Acute) Pancreatitis (Acute) Dementia (Chronic) HLD (hyperlipidemia) (Chronic) HTN (hypertension) (Chronic) Condition: Improved - Instructions Diet, Activity, Other Instructions: You have been and treated for acute pancreatitis. Please increase your activity as tolerated. You can resume a heart healthy diet. You will need to follow up with your primary doctor and Dr. Jose THOMPSON in one week. Resume you home medications as previously prescribed. If your pain returns or you develop fever or chills please return to ER immediately. Guamanian: Usted del rosario sido tratado y tratado por pancreatitis aguda. Aumente casiano actividad segn lo tolere. Puede reanudar jarett dieta saludable para el corazn. Deber realizar un seguimiento con casiano mdico de cabnat[place] y el Dr. Jose THOMPSON en jarett semana. Reanude jannette medicamentos en [place] se prescribi anteriormente. Si casiano dolor regresa o si presenta fiebre o escalofros, vuelva a la toul de emergencias inmediatamente. Referrals: Tate Garcia MD [Staff Physician] - 1 Week Disposition: HOME - Home Medications Comprehensive Discharge Medication List: Ambulatory Orders Brimonidine Tartrate/Timolol [Combigan 0.2%-0.5% Eye Drops] 15 ml OP BID Brinzolamide [Azopt] 15 ml OU TID 04/29/18 Donepezil HCl 10 mg PO HS 04/29/18 This patient is new to me today: No Emergency Visit: Yes ED Registration Date: 04/29/18 Care time: The patient presented to the Emergency Department on the above date and was hospitalized for further evaluation of their emergent condition. Critical Care patient: No - Discharge Referral Referred to [facility] Med P.C.: No
--- NOTE | 2018-05-02 17:06 | PN ---
Teaching Attending Note Name of Resident: Christopher Squires ATTENDING PHYSICIAN STATEMENT I saw and evaluated the patient. I reviewed the resident's note and discussed the case with the resident. I agree with the resident's findings and plan as documented. SUBJECTIVE: Ms Smith says she is feeling well and ready to go home. No cp, sob, n/v. OBJECTIVE: Gen: nad CV: rrr w/o m/r/g Pulm: ctab w/o w/r/r Abd: +bs, s/nt/nd Ext: no c/c/e HC: Ms Smith is a very pleasant 67 year old female who came in with pancreatitis. She was aggressively hydrated and made npo. She improved and her diet was advanced. She is currently stable and has tolerated solid diet for over 24 hours. She is safe for discharge home. Problem List - Problems (1) Pancreatitis Code(s): K85.90 - ACUTE PANCREATITIS WITHOUT NECROSIS OR INFECTION, UNSP Qualifiers: Chronicity: acute Pancreatitis type: other Acute pancreatitis complication: unspecified Qualified Code(s): K85.80 - Other acute pancreatitis without necrosis or infection (2) HLD (hyperlipidemia) Code(s): E78.5 - HYPERLIPIDEMIA, UNSPECIFIED (3) HTN (hypertension) Code(s): I10 - ESSENTIAL (PRIMARY) HYPERTENSION (4) Dementia Code(s): F03.90 - UNSPECIFIED DEMENTIA WITHOUT BEHAVIORAL DISTURBANCE
== END 2018-05-02 12:45 | disposition home or self-care (01) | DRG 440 ==
LOC: JER 01:09 → JERBED 03:01 → UNDOADMIN 03:14 → J4W 10:08
PROVIDERS: ADMIT Internal Medicine; ATTEND Internal Medicine
DX: K85.90 Acute pancreatitis without necrosis or infection, unspecified (principal); M54.2 Cervicalgia; I10 Essential (primary) hypertension; E78.5 Hyperlipidemia, unspecified; R42 Dizziness and giddiness; Z88.0 Allergy status to penicillin; H40.9 Unspecified glaucoma; R68.0 Hypothermia, not associated with low environmental temperature; D72.829 Elevated white blood cell count, unspecified; F03.90 Unspecified dementia, unspecified severity, without behavioral disturbance, psychotic disturbance, mood disturbance, and anxiety
CPT/HCPCS: 36415; 70450-TC; 71045-TC-FY; 74150-TC; 76705-TC; 80048; 80053; 80061; 80076; 81003; 82550; 83690; 83721; 83735; 84100; 84478; 84484; 85025; 85610; 85651; 85730; 87086; 93005; 93010; 93880-TC; 99285-25; J1644

== ENCOUNTER 2018-11-30 05:26 | Inpatient (IN) | payer OTHER ==
[2018-11-30] MEDS ORDERED: FAMOTIDINE 20 MG/50 ML IVPB 20 MG/50 ML MG IVPB ONE ×2 (07:06→08:11)
[2018-11-30] MEDS ORDERED: ACETAMINOPHEN 1000 MG/100 ML VIAL (NON FORMULARY) IVPB ONE (07:06)
[2018-11-30] MEDS ORDERED: SODIUM CHLORIDE 1,000 ML IV STA (07:06)
--- NOTE | 2018-11-30 07:06 | PDOC ---
History of Present Illness - General Chief Complaint: Pain Stated Complaint: Abdominal pain Time Seen by Provider: 11/30/18 06:57 History Source: Patient Exam Limitations: No Limitations, Language Barrier - History of Present Illness Initial Comments: 68 yo F w a hx of HTN, HLD, pancreatitis, and GERD presents to the ER after she woke up this morning at 4 am with abdominal pain, nausea, and experienced one episode of white NBNB vomitus. The daughter at [facility] states she went to bed feeling normal but then when she vomited this morning it was the food she ate last night.The patient also states she took her blood pressure at home and was hypotensive. Upon arrival to the ED the patient was normo/hypertensive on multiple measurements. The patient states before she vomited she felt weak and pale. She denies having experienced any chest pain, headache, back pain, blurry vision , neck pain, dysuria, frequency, or urgency. LMP: 5 years ago PCP: Lm Hagan at [facility] PSH: None reported Social Hx: Denies smoking, drinking, or other substance usage Allergies: Penicillins Past History - Past Medical History Allergies/Adverse Reactions: Allergies Allergy/AdvReac Type Severity Reaction Status Date / Time Penicillins Allergy Rash Verified 11/30/18 06:09 Home Medications: Ambulatory Orders Brimonidine Tartrate/Timolol [Combigan 0.2%-0.5% Eye Drops] 15 ml OP BID Brinzolamide [Azopt] 15 ml OU TID 04/29/18 Donepezil HCl 10 mg PO HS 04/29/18 Simvastatin [Zocor -] 40 mg PO HS 11/30/18 HTN: Yes Hypercholesterolemia: Yes - Suicide/Smoking/Psychosocial Hx Smoking Status: No Smoking History: Never smoked Have you smoked in the past 12 months: No Number of Cigarettes Smoked Daily: 0 Cigars Per Day: 0 Information on smoking cessation initiated: No Hx Alcohol Use: No Drug/Substance Use Hx: No Review of Systems - Review of Systems Able to Perform ROS?: Yes Comments:: CONSTITUTIONAL: Absent: fever, no chills, no fatigue EYES: Absent: visual changes ENT: Absent: ear pain, no sore throat CARDIOVASCULAR: Absent: chest pain, no palpitations RESPIRATORY: Absent: cough, no SOB GI: Present: Abdominal pain, nausea, vomiting Absent: no constipation, no diarrhea GENITOURINARY: Absent: dysuria, no frequency, no hematuria MUSKULOSKELETAL: Absent: back pain, no arthralgia, no myalgia SKIN: Absent: rash NEURO: Absent: headache *Physical Exam - Vital Signs Last Vital Signs Temp Pulse Resp BP Pulse Ox 97.5 F L 53 L 18 153/62 98 11/30/18 06:05 11/30/18 06:05 11/30/18 06:05 11/30/18 06:05 11/30/18 06:05 - Physical Exam Comments: GENERAL: Well-appearing, well-nourished. No apparent distress. HEENT: Normocephalic, atraumatic. PERRL, EOM intact. CARDIOVASCULAR: Normal S1, S2. Regular rate and rhythm. PULMONARY: No evidence of respiratory distress. Lungs clear to auscultation bilaterally. No wheezing, rales or rhonchi. ABDOMEN: There is mild isaias-umbilical, LLQ, and RLQ abdominal TTP. Abdomen is still soft , non-distended, and has normal bowel sounds. EXTREMITIES: Normal ROM in all four extremities. No gross deformities. SKIN: Warm, dry. No rash NEUROLOGICAL: No focal neurological deficits. Heart Score/ECG Review - ECG Intrepretation Rhythm: Regular Rhythm - [place]: Right [place] Deviation - ST and T Non Specific ST-T Wave changes: Yes - ECG Impressions Normal ECG: No Non-specific ST Elevation: No ED Treatment Course - LABORATORY CBC & Chemistry Diagram: 11/30/18 08:00 11/30/18 08:00 - RADIOLOGY Radiograph Interpretation: CTAP: Lower abdominal pain. CT scan of the abdomen and pelvis following intravenous contrast. Coronal and sagittal reformatted images were obtained 100 cc of Omnipaque 350 was intravenously injected Comparison: Prior CT scan of the abdomen pelvis dated 04/29/2018 Previously visualized nodule in the left lung base is seen measuring 4.5 to without gross interval change. The heart is within normal limits in size. Evaluation of the liver, spleen and pancreas appear unremarkable. Partially distended stomach without wall thickening. Adequately distended gallbladder without gross intraluminal stones or wall thickening. Both adrenal glands and both kidneys appear unremarkable. There is no evidence of small bowel obstruction. Normal-appearing terminal ileum and appendix. Moderate amount of fecal residue in the colon with a few diverticula present in the descending and proximal sigmoid colon without evidence of acute diverticulitis. Normal size uterus. Both ovaries are within normal limits in size. Partially distended urinary bladder without wall thickening. Perirectal and pericecal fat are clear Normal size and enhancement of the abdominal aorta down through its bifurcation with multiple small calcified plaques present. No free air, free fluid or gross enlarged lymph nodes are identified. Visualized osseous structures appear intact. IMPRESSION: No organomegaly or CT evidence of an acute process is identified in the abdomen and pelvis. A few diverticula in the colon mainly in the descending and proximal sigmoid colon without evidence of acute diverticulitis. Normal-appearing terminal ileum and appendix. No free air or free fluid in the abdomen and pelvis. Correlate clinically to determine further evaluation and follow-up. RUQ US: Rule out stones, cholecystitis Right upper abdomen ultrasound. The liver is within normal limits in size measuring 14.2 cm in sagittal length with a slightly coarse echotexture. Gallbladder is adequately distended without intraluminal stones or thickening of its wall. No intra or extrahepatic bile duct dilatation is seen. The right kidney measures 10.1 cm sagittal length and appears unremarkable. Visualized portion of the pancreas appears unremarkable Visualized portion of the proximal abdominal aorta and inferior vena cava appear unremarkable. Normal flow in the main portal vein. IMPRESSION: Slightly coarse echotexture of the liver. Please correlate with liver enzymes rule out mild fatty infiltration. No gallstones are identified. Medical Decision Making - Medical Decision Making 68 yo F w a hx of HTN, HLD, pancreatitis, and GERD presents to the ER after she woke up this morning at 4 am with abdominal pain, nausea, and experienced one episode of white NBNB vomitus. The daughter at [facility] states she went to bed feeling normal but then when she vomited this morning it was the food she ate last night.The patient also states she took her blood pressure at home and was hypotensive. Upon arrival to the ED the patient was normo/hypertensive on multiple measurements. The patient states before she vomited she felt weak and pale. Vital Signs Temp Pulse Resp BP Pulse Ox 97.5 F L 53 L 18 153/62 98 11/30/18 06:05 11/30/18 06:05 11/30/18 06:05 11/30/18 06:05 11/30/18 06:05 DDx IBNLT: diverticulitis, colitis, gastroenteritis, pancreatitis, appendicitis , UTI/Pylo, referred cardiac pain, Ovarian cyst rupture/torsion, , post -menopausal hot flashes Plan: Labs, urine, ekg, CTAP, IV hydration, analgesia, GI cocktail, re-assess. EKG: Rightward axis and Non-specific T wave abnormality which were both present in 04/17 Labs: Notable for elevated lipase at 1099, and elevated amylase at 205 - this is suggestive of pancreatitis with the patient's hx of pancreatitis as well as her current symptoms. - Mild leukocytosis and mild elevation of BUN noted as well. Urine: Shows 1+ LE, 13 WBC, 515 Bacteria all suggestive of UTI. - Treat w/ Ceftriaxone [place]'s criteria on admission: 1 - Only positive for age - Negative for WBC over 16, glucose over 200, AST over 250, LDH over 350 CTAP: Unremarkable - see full report above. RUQ US: Unremarkable - no gallstones. Disposition: Will Admit to hospital for pancreatitis. - Spoke with hospitalist Dr. Ovalle who accepted patient for admission. *DC/Admit/Observation/Transfer Diagnosis at time of Disposition: Pancreatitis, Abdominal pain, UTI (urinary tract infection), Elevated BUN - Discharge Dispostion Condition at time of disposition: Fair Decision to Admit order: Yes - Referrals - Patient Instructions - Post Discharge Activity
[2018-11-30] MEDS ORDERED: ONDANSETRON 4 MG/2 ML VIAL IVPUSH ONE (07:07)
[2018-11-30] MEDS ORDERED: MAG HYDROX/AL HYDROX/SIMETH -MYLANTA- ORAL SUSPENSION PO ONE (07:12)
[2018-11-30] MEDS ORDERED: ONDANSETRON 4 MG/2 ML VIAL ONE (07:47)
[2018-11-30] MEDS ORDERED: MAG HYDROX/AL HYDROX/SIMETH 30 ML UNIT-DOSE CUP ONE (07:47)
[2018-11-30] MEDS ORDERED: ACETAMINOPHEN INJECTION 100 ML IVPB ONE (07:47)
[2018-11-30 08:33] LABS: BASO % 0.8 % (0-2.0); EOS % 0.8 % (0-4.5); HEMOGLOBIN 13.8 GM/dL (10.7-15.3); LYMPH % 23.1 % (8-40); MCH 29.7 pg (25.7-33.7); MCHC 34.5 g/dl (32.0-36.0); MEAN CELL VOLUME 86.2 fl (80-96); MEAN PLT VOLUME 9.8 fl (7.5-11.1); MONO % 4.5 % (3.8-10.2); NEUT % 70.8 % (42.8-82.8); PLATELET COUNT 283 K/MM3 (134-434); RBC 4.64 M/mm3 (3.60-5.2); RDW 13.4 % (11.6-15.6); WHITE BLOOD COUNT 10.2 K/mm3 (4.0-10.0)
[2018-11-30 08:57] LABS: ALBUMIN 3.4 g/dl (3.4-5.0); ALK PHOS 88 U/L (45-117); AMYLASE 205 U/L (25-115); ANION GAP 6 MMOL/L (8-16); BILIRUBIN,TOTAL 0.4 mg/dL (0.2-1); BLOOD UREA NITROGEN 19.9 mg/dL (7-18); CALCIUM 9.1 mg/dL (8.5-10.1); CHLORIDE 104 mmol/L (98-107); CO2 27 mmol/L (21-32); CREATININE 0.7 mg/dL (0.55-1.3); GLUCOSE,RANDOM 116 mg/dL (74-106); LIPASE 1099 U/L (73-393); MAGNESIUM 2.2 mg/dL (1.8-2.4); PHOSPHOROUS 2.8 mg/dL (2.5-4.9); POTASSIUM 3.7 mmol/L (3.5-5.1); SGOT/AST 22 U/L (15-37); SGPT/ALT 37 U/L (13-61); SODIUM 138 mmol/L (136-145)
[2018-11-30 09:02] LABS: EPI CELLS 10.6 /HPF (0-5/HPF); HYALINE CASTS 5 /lpf (0-8); URINE APPEARANCE CLEAR; URINE BACTERIA 515.8 /hpf (NEGATIVE); URINE BILIRUBIN NEGATIVE (NEGATIVE); URINE COLOR YELLOW; URINE GLUCOSE (UA) NEGATIVE (NEGATIVE); URINE KETONE NEGATIVE (NEGATIVE); URINE LEUK ESTERASE 1+ (NEGATIVE); URINE NITRITE NEGATIVE (NEGATIVE); URINE PROTEIN NEGATIVE (NEGATIVE); URINE RBC 1 /hpf (0-4); URINE WBC 13 /hpf (0-5)
--- NOTE | 2018-11-30 09:03 | PDOC ---
Documentation entered by Grant Hayward SCRIBE, acting as scribe for Enrique Limon MD. Enrique Limon MD: This documentation has been prepared by the Mainor matthews Joel, SCRIBE, under my direction and personally reviewed by me in its entirety. I confirm that the documentation accurately reflects all work, treatment, procedures, and medical decision making performed by me. Attending Attestation - Resident Resident Name: Keith Roger - ED Attending Attestation I have performed the following: I have examined & evaluated the patient, The case was reviewed & discussed with the resident, I agree w/resident's findings & plan, Exceptions are as noted - HPI HPI: 11/30/18 07:44 The patient is a 68 year old female with a significant PMH of pancreatitis, HTN , hyperlipidemia, and GERD who presents to the emergency department for evaluation of abdominal pain with associated vomiting. The patient states waking up about 4 hours ago with abdominal pain and nausea with 1 episode of NBNB vomiting. The patient denies chest pain, shortness of breath, headache and dizziness. Denies fever, chills, diarrhea and constipation. Denies dysuria, frequency, urgency and hematuria. Allergies: Penicillins Social history: No reported cigarette, alcohol, or drug use. PCP: Dr. Lm Hagan - Physicial Exam PE: 11/30/18 09:04 GENERAL: Awake, alert, and fully oriented, in no acute distress. HEAD: No signs of trauma EYES: PERRLA, EOMI, sclera anicteric, conjunctiva clear ENT: Auricles normal inspection, hearing grossly normal, nares patent, oropharynx clear without exudates. Moist mucosa NECK: Nontender, no stepoffs, Normal ROM, supple, no lymphadenopathy, JVD, or masses LUNGS: Breath sounds equal, clear to auscultation bilaterally. No wheezes, and no crackles HEART: Regular rate and rhythm, normal S1 and S2, no murmurs, rubs or gallops ABDOMEN: + mild L sided TTP, normoactive bowel sounds. No guarding, no rebound. No masses EXTREMITIES: Normal range of motion, no edema. No clubbing or cyanosis. No cords, erythema, or tenderness NEUROLOGICAL: Cranial nerves II through XII intact. 5/5 strength and sensation in all extremities, Normal speech, normal gait, normal cerebellar function SKIN: Warm, Dry, normal turgor, no rashes or lesions noted. - Medical Decision Making 11/30/18 09:05 68 F with L sided abdominal pain. Has h/o pancreatitis. - Labs, lipase, trop - CTAP - RUQ sono 11/30/18 10:15 Lipase >1000 Will admit for pancreatitis CT done, awaiting read Pt at US Pt admitted to hospitalist
[2018-11-30 09:32] LABS: INR 0.95 (0.83-1.09); PROTHROMBIN TIME (PATIENT) 11.2 SEC (9.7-13.0)
[2018-11-30 09:58] LABS: LDH 202 U/L (84-246)
[2018-11-30] MEDS ORDERED: morphine CARPU-JECT 4 MG/1 ML DISP.SYRIN IVPUSH ONE (10:47)
[2018-11-30] MEDS ORDERED: SODIUM CHLORIDE 0.9% 500 ML INFUS.BAG IV ONE (10:48)
[2018-11-30] MEDS ORDERED: ACETAMINOPHEN 325 MG TABLET (FP) PO PRN (13:46)
--- NOTE | 2018-11-30 13:55 | PN ---
Teaching Attending Note Name of Resident: Blake Lopez ATTENDING PHYSICIAN STATEMENT I saw and evaluated the patient. I reviewed the resident's note and discussed the case with the resident. I agree with the resident's findings and plan as documented. SUBJECTIVE: Patient is c/o having midepigastric abdominal pain x 1 day, with nausea. OBJECTIVE: Vital Signs Temperature 97.5 F L 11/30/18 12:20 Pulse Rate 50 L 11/30/18 12:20 Respiratory Rate 18 11/30/18 12:20 Blood Pressure 132/59 L 11/30/18 12:20 O2 Sat by Pulse Oximetry (%) 100 11/30/18 11:22 GENERAL: The patient is awake, alert, and fully oriented, in no acute distress. HEAD: Normal with no signs of trauma. EYES: PERRL, extraocular movements intact, sclera anicteric, conjunctiva clear. ENT: Ears normal, oropharynx clear without exudates, moist mucous membranes. NECK: Trachea midline, full range of motion, supple. LUNGS: Breath sounds equal, clear to auscultation bilaterally, no wheezes, no crackles, no accessory muscle use. HEART: Regular rate and rhythm, S1, S2 without murmur, rub or gallop. ABDOMEN: Soft, mild tenderness , ND, normoactive bowel sounds, no guarding, no rebound, no hepatosplenomegaly, no masses. EXTREMITIES: 2+ pulses, warm, well-perfused, no edema. NEUROLOGICAL: Cranial nerves II through XII grossly intact. Normal speech, gait is stable. PSYCH: Normal mood, normal affect. SKIN: Warm, dry, normal turgor, no rashes or lesions noted CBCD WBC 10.2 K/mm3 (4.0-10.0) H 11/30/18 08:00 RBC 4.64 M/mm3 (3.60-5.2) 11/30/18 08:00 Hgb 13.8 GM/dL (10.7-15.3) 11/30/18 08:00 Hct 40.0 % (32.4-45.2) 11/30/18 08:00 MCV 86.2 fl (80-96) 11/30/18 08:00 MCHC 34.5 g/dl (32.0-36.0) 11/30/18 08:00 RDW 13.4 % (11.6-15.6) 11/30/18 08:00 Plt Count 283 K/MM3 (134-434) D 11/30/18 08:00 MPV 9.8 fl (7.5-11.1) 11/30/18 08:00 CMP Sodium 138 mmol/L (136-145) 11/30/18 08:00 Potassium 3.7 mmol/L (3.5-5.1) 11/30/18 08:00 Chloride 104 mmol/L (98-107) 11/30/18 08:00 Carbon Dioxide 27 mmol/L (21-32) 11/30/18 08:00 Anion Gap 6 MMOL/L (8-16) L 11/30/18 08:00 BUN 19.9 mg/dL (7-18) H 11/30/18 08:00 Creatinine 0.7 mg/dL (0.55-1.3) 11/30/18 08:00 Random Glucose 116 mg/dL (74-106) H 11/30/18 08:00 Calcium 9.1 mg/dL (8.5-10.1) 11/30/18 08:00 Total Bilirubin 0.4 mg/dL (0.2-1) 11/30/18 08:00 AST 22 U/L (15-37) 11/30/18 08:00 ALT 37 U/L (13-61) 11/30/18 08:00 Alkaline Phosphatase 88 U/L (45-117) 11/30/18 08:00 Total Protein 7.0 g/dl (6.4-8.2) 11/30/18 08:00 Albumin 3.4 g/dl (3.4-5.0) 11/30/18 08:00 CARDIAC ENZYMES Troponin I < 0.02 ng/ml (0.00-0.05) 11/30/18 08:00 Home Medications Medication Instructions Recorded Brimonidine Tartrate/Timolol 15 ml OP BID 04/29/18 [Combigan 0.2%-0.5% Eye Drops] Brinzolamide [Azopt] 15 ml OU TID 04/29/18 Donepezil HCl 10 mg PO HS 04/29/18 Atorvastatin Ca [Lipitor] 40 mg PO HS 11/30/18 Famotidine [Pepcid] 40 mg PO HS 11/30/18 Hydrochlorothiazide [Hctz -] 12.5 mg PO DAILY 11/30/18 Omeprazole 20 mg PO DAILY 11/30/18 Simvastatin [Zocor -] 40 mg PO HS 11/30/18 CT abdomen and pelvis showed no organomegaly, few diverticula in the colon, and no free air/fluid. Normal pancreas. US abdomen showed fatty infiltration of liver. ASSESSMENT AND PLAN: Patient is a 68 y/o Female with PMHx of pancreatitis, HLD, HTN, GERD, and glaucoma was admitted for acute pancreatitis. #Acute pancreatitis with Lipase of 1099, c/o having midepigastric pain, will monitor, clear liquid for now. #Asymptomatic bacteremia: positive UA 1+ leuk esterase with 518 bacteria, Cx pending but patient asymptomatic. #GERD: continue with your famotidine. #Hyperlipidemia: ordered lipid panel, continue atorvastatin as prescribed, liver enzymes wnl #HTN: Continue HCTZ as prescribed Prophylaxis: DVT: Heparin 5000sq
--- NOTE | 2018-11-30 14:37 | HP ---
CHIEF COMPLAINT: Nausea and vomiting, abdominal pain PCP: Lm Hagan from [facility] HISTORY OF PRESENT ILLNESS: This is a 68 y/o F with a PMH of HLD, HTN, pancreatitis (04/17), GERD, and glaucoma that presented to the ED c/o of NBNB vomiting, accompanied by midepigastric pain radiating to the left side at 4:30 AM this morning and called her daughter in and she gave her some tea but that did not improve the pain. Pt stated that she had a honey turkey sandwich for lunch which has made her feel this way in the past. It is a 7/10 on the pain scale dull in quality that does not radiate to the back. Pt endorsed being pale , diaphoretic and bloated. Pt denies any diarrhea, recent sick contacts, back pain, chest pain, sob, or blurred vision. She endorsed being constipated 2 weeks ago and that has resolved, and she has had an intermittent headache for the past 3 mths b/l throbbing type pain. Denies any signs that her headache is coming on, photophobia or any associated foods. She denies any alcohol or illicit drug use. Pt reports having this episode in 04/17 and per pt followed up with her GI doctor and had "negative imaging". ER course was notable for: (1)cbc/cmp, Lipase- 1099, amylase- 205 (2)US abdomen, CT abdomen pelvis (3)UA w UA Cx, UA 1+ leukocyte esterase Recent Travel: PAST MEDICAL HISTORY: HTN, HLD, pancreatitis, GERD, glaucoma PAST SURGICAL HISTORY: No hx of any GI surgeries. Social History: Smoking:denies Alcohol:denies Drugs: denies Family History: Allergies Penicillins Allergy (Verified 11/30/18 06:09) Rash HOME MEDICATIONS: Home Medications Medication Instructions Recorded Brimonidine Tartrate/Timolol 15 ml OP BID 04/29/18 [Combigan 0.2%-0.5% Eye Drops] Brinzolamide [Azopt] 15 ml OU TID 04/29/18 Donepezil HCl 10 mg PO HS 04/29/18 Atorvastatin Ca [Lipitor] 40 mg PO HS 11/30/18 Famotidine [Pepcid] 40 mg PO HS 11/30/18 Hydrochlorothiazide [Hctz -] 12.5 mg PO DAILY 11/30/18 Omeprazole 20 mg PO DAILY 11/30/18 Simvastatin [Zocor -] 40 mg PO HS 11/30/18 REVIEW OF SYSTEMS CONSTITUTIONAL: Absent: fever, chills, generalized weakness, malaise, loss of appetite, weight change Positive- diaphoresis. HEENT: Absent: visual changes Positive: headache b/l throbbing pain, no warning signs before headache, no photophobia Cardiovascular: Absent: chest pain Positive: no cardiac findings noted RESPIRATORY: Absent: shortness of breath, dyspnea with exertion. GASTROINTESTINAL: Positive: midepigastric pain radiating to the left side, 7/10 dull in quality associated with some bloating. She was constipated 2 wks ago. NBNB vomiting, nausea. Absent: diarrhea, constipation. GENITOURINARY: Absent: dysuria, hematuria, flank pain. MUSCULOSKELETAL: Absent: back pain. PHYSICAL EXAMINATION Vital Signs - 24 hr Last Vital Signs Temp Pulse Resp BP Pulse Ox 97.5 F L 50 L 18 132/59 L 100 11/30/18 12:20 11/30/18 12:20 11/30/18 12:20 11/30/18 12:20 11/30/18 11:22 GENERAL: Awake, alert, and fully oriented, in no acute distress. HEAD: Normal with no signs of trauma. EYES: sclera anicteric, conjunctiva clear. NECK: supple. LUNGS: Breath sounds equal, clear to auscultation bilaterally. No wheezes, and no crackles. No accessory muscle use. HEART: Regular rate and rhythm, normal S1 and S2 without murmur, rub or gallop. ABDOMEN: Soft, non-distended, hypoactive bowel sounds, no guarding, no rebound, tenderness to deep palpation over midepigastric area and radiates to the left side. No wasserman turners, cullens sign appreciated in the flanks or periumbillical jean claude respectively. MUSCULOSKELETAL: No CVA tenderness. LOWER EXTREMITIES: 2+ pulses, warm, well-perfused. No peripheral edema. NEUROLOGICAL: Normal speech. PSYCHIATRIC: Cooperative. Good eye contact. Appropriate mood and affect. SKIN: Warm, dry, no rashes or lesions noted. Laboratory Results - last 24 hr CBC, BMP 11/30/18 08:00 11/30/18 08:00 Current Medications Acetaminophen (Tylenol -) 650 mg PO Q4H PRN PRN Reason: PAIN Heparin Sodium (Porcine) (Heparin -) 5,000 unit SQ Q8H-IV ABBY Lactated Ringer's (Lactated Ringers Solution) 1,000 mls @ 125 mls/hr IV ASDIR [facility] ASSESSMENT/PLAN: Patient is a 68 y/o F w a PMH of pancreatitis, HLD, HTN, GERD, and glaucoma was admitted for acute pancreatitis. #Acute pancreatitis - Lipase 1099 - Amylase- 205 - CT abdomen and pelvis showed no organomegaly, few diverticula in the colon, and no free air/ fluid. Normal pancreas. - US abdomen showed fatty infiltration of liver. - started IVF LR 125 mL - advanced her to clear liquids due to low pain scale. - tylenol for pain 650mg q4hrs prn -if needed can order zofran 4mg for nausea prn QTc 418 #Asymptomatic bacteremia - positive UA 1+ leuk esterase with 518 bacteria, Cx pending but patient asymptomatic, no management at this time. #GERD -continue with your famotidine. #Hyperlipidemia - ordered lipid panel - continue atorvastatin as prescribed, liver enzymes wnl #HTN - Continue HCTZ as prescribed #Headache/early onset dementia - monitor with primary care physician as this could be a tension headache or migraine without aura. - pt has endorsed she has some short term memory loss - continue w donepezil as prescribed #FEN - IV LR 125mL - monitor electrolytes - clear liquid diet Prophylaxis: DVT: Heparin 5000SQ TID ordered. Pt refused it so ordered SCD's. GI: No PPX at this time. Dispo- admitted to med/surg, will monitor for any worsening of the pancreatitis. Visit type - Emergency Visit Emergency Visit: Yes ED Registration Date: 11/30/18 Care time: The patient presented to the Emergency Department on the above date and was hospitalized for further evaluation of their emergent condition. - New Patient This patient is new to me today: Yes Date on this admission: 11/30/18 - Critical Care Critical Care patient: No
[2018-11-30] MEDS: HEPARIN NA (PORCINE) 5,000 UNITS/ML 1ML VIAL SQ SCH ×2 (14:43→21:17)
[2018-11-30] MEDS: LACTATED RINGERS SOLUTION 1,000 ML IV SCH (14:43)
[2018-11-30 18:54] VITALS: BMI 26.9
[2018-11-30] MEDS: DONEPEZIL HCL 10 MG TABLET (FP) PO SCH (21:18)
[2018-11-30] MEDS: RANITIDINE HCL 150 MG TABLET (FP) PO SCH (21:18)
[2018-11-30] MEDS: [UNRECOGNIZED DRUG - OTHER] OU SCH (21:19)
[2018-11-30] MEDS: COMBIGAN EYE OU SCH (21:19)
[2018-11-30] MEDS: EYE OU SCH (21:19)
[2018-11-30] MEDS ORDERED: PATIENT'S OWN MEDICATION (NON-FORMULARY) (Brinzolamide [Azopt] 15 ML) OU SCH (22:00)
[2018-11-30] MEDS ORDERED: PATIENT'S OWN MEDICATION (NON-FORMULARY) (Famotidine [Pepcid] 40 MG) PO SCH (22:00)
[2018-11-30] MEDS ORDERED: PATIENT'S OWN MEDICATION (NON-FORMULARY) (Brimonidine Tartrate/Timolol [Combigan 0.2%-0.5% OP SCH (22:00)
[2018-11-30] MEDS ORDERED: ATORVASTATIN CA 40 MG TABLET (FP) PO SCH (22:00)
[2018-12-01] MEDS: LACTATED RINGERS SOLUTION 1,000 ML IV SCH (01:59)
[2018-12-01] MEDS: HEPARIN NA (PORCINE) 5,000 UNITS/ML 1ML VIAL SQ SCH ×3 (05:03→22:02)
[2018-12-01 08:00] LABS: BASO % 1.2 % (0-2.0); EOS % 2.8 % (0-4.5); HEMATOCRIT 40.5 % (32.4-45.2); HEMOGLOBIN 13.6 GM/dL (10.7-15.3); LYMPH % 42.3 % (8-40); MCH 29.4 pg (25.7-33.7); MCHC 33.5 g/dl (32.0-36.0); MEAN CELL VOLUME 87.6 fl (80-96); MEAN PLT VOLUME 9.7 fl (7.5-11.1); MONO % 6.8 % (3.8-10.2); NEUT % 46.9 % (42.8-82.8); RBC 4.62 M/mm3 (3.60-5.2); RDW 13.6 % (11.6-15.6); WHITE BLOOD COUNT 7.2 K/mm3 (4.0-10.0)
[2018-12-01 08:22] LABS: CHOLESTEROL 173 mg/dL (50-200); HDL CHOLESTEROL 42 mg/dL (40-60); TRIGLYCERIDES 311 mg/dL (0-150)
[2018-12-01 08:25] LABS: ALBUMIN 3.2 g/dl (3.4-5.0); BILIRUBIN,TOTAL 0.5 mg/dL (0.2-1); BLOOD UREA NITROGEN 7.7 mg/dL (7-18); CALCIUM 8.7 mg/dL (8.5-10.1); CREATININE 0.6 mg/dL (0.55-1.3); MAGNESIUM 2.2 mg/dL (1.8-2.4); PHOSPHOROUS 3.4 mg/dL (2.5-4.9); TOT PROT 6.4 g/dl (6.4-8.2)
[2018-12-01 08:42] LABS: PLATELET COUNT 283 K/MM3 (134-434)
[2018-12-01] MEDS ORDERED: PT OWN MED DRAWER 7, Y5N ONE (09:16)
[2018-12-01] MEDS ORDERED: HYDROCHLOROTHIAZIDE 12.5 MG CAPSULE (FP) PO SCH (10:00)
[2018-12-01] MEDS: COMBIGAN EYE OU SCH ×2 (10:18→22:01)
[2018-12-01] MEDS: EYE OU SCH ×2 (10:19→22:01)
[2018-12-01] MEDS: [UNRECOGNIZED DRUG - OTHER] OU SCH ×2 (10:19→22:01)
--- NOTE | 2018-12-01 10:21 | EKG ---
Test Reason : Blood Pressure : / mmHG Vent. Rate : 057 BPM Atrial Rate : 057 BPM P-R Int : 148 ms QRS Dur : 086 ms QT Int : 426 ms P-R-T Axes : 047 093 054 degrees QTc Int : 414 ms SINUS BRADYCARDIA WITH SINUS ARRHYTHMIA RIGHTWARD AXIS NONSPECIFIC T WAVE ABNORMALITY ABNORMAL ECG WHEN COMPARED WITH ECG OF 29-APR-2018 01:35, NO SIGNIFICANT CHANGE WAS FOUND Confirmed by SPENCER CLINE, HORTENCIA ([id number]) on 12/01/2018 10:21:18 AM Referred By: Confirmed By:HORTENCIA PALMER MD
[2018-12-01] MEDS ORDERED: DEXTROSE 5%-0.45% SALINE 1,000 ML IV SCH (12:30)
--- NOTE | 2018-12-01 17:56 | PN ---
Progress Note (short form) - Note Progress Note: Patient is feeling better. No further midabdominal pain. Vital Signs Temperature 99.1 F 12/01/18 14:00 Pulse Rate 61 12/01/18 14:00 Respiratory Rate 19 12/01/18 14:00 Blood Pressure 113/50 L 12/01/18 14:00 O2 Sat by Pulse Oximetry (%) 100 11/30/18 21:00 GENERAL: The patient is awake, alert, and fully oriented, in no acute distress. HEAD: Normal with no signs of trauma. EYES: PERRL, extraocular movements intact, sclera anicteric, conjunctiva clear. ENT: Ears normal, oropharynx clear without exudates, moist mucous membranes. NECK: Trachea midline, full range of motion, supple. LUNGS: Breath sounds equal, clear to auscultation bilaterally, no wheezes, no crackles, no accessory muscle use. HEART: Regular rate and rhythm, S1, S2 without murmur, rub or gallop. ABDOMEN: Soft, mild tenderness , ND, normoactive bowel sounds, no guarding, no rebound, no hepatosplenomegaly, no masses. EXTREMITIES: 2+ pulses, warm, well-perfused, no edema. NEUROLOGICAL: Cranial nerves II through XII grossly intact. Normal speech, gait is stable. PSYCH: Normal mood, normal affect. SKIN: Warm, dry, normal turgor, no rashes or lesions noted CBCD WBC 7.2 K/mm3 (4.0-10.0) 12/01/18 07:29 RBC 4.62 M/mm3 (3.60-5.2) 12/01/18 07:29 Hgb 13.6 GM/dL (10.7-15.3) 12/01/18 07:29 Hct 40.5 % (32.4-45.2) 12/01/18 07:29 MCV 87.6 fl (80-96) 12/01/18 07:29 MCHC 33.5 g/dl (32.0-36.0) 12/01/18 07:29 RDW 13.6 % (11.6-15.6) 12/01/18 07:29 Plt Count 283 K/MM3 (134-434) 12/01/18 07:29 MPV 9.7 fl (7.5-11.1) 12/01/18 07:29 CMP Sodium 147 mmol/L (136-145) H 12/01/18 07:29 Potassium 4.0 mmol/L (3.5-5.1) 12/01/18 07:29 Chloride 111 mmol/L (98-107) H 12/01/18 07:29 Carbon Dioxide 32 mmol/L (21-32) 12/01/18 07:29 Anion Gap 4 MMOL/L (8-16) L 12/01/18 07:29 BUN 7.7 mg/dL (7-18) 12/01/18 07:29 Creatinine 0.6 mg/dL (0.55-1.3) 12/01/18 07:29 Random Glucose 82 mg/dL (74-106) 12/01/18 07:29 Calcium 8.7 mg/dL (8.5-10.1) 12/01/18 07:29 Total Bilirubin 0.5 mg/dL (0.2-1) 12/01/18 07:29 AST 37 U/L (15-37) 12/01/18 07:29 ALT 68 U/L (13-61) H 12/01/18 07:29 Alkaline Phosphatase 83 U/L (45-117) 12/01/18 07:29 Total Protein 6.4 g/dl (6.4-8.2) 12/01/18 07:29 Albumin 3.2 g/dl (3.4-5.0) L 12/01/18 07:29 CARDIAC ENZYMES Troponin I < 0.02 ng/ml (0.00-0.05) 11/30/18 08:00 Current Medications Generic Name Dose Route Start Last Admin Trade Name Freq PRN Reason Stop Dose Admin Atorvastatin Calcium 80 mg 12/01/18 17:55 Lipitor - PO HS ABBY Donepezil HCl 10 mg 11/30/18 22:00 11/30/18 21:18 Aricept - PO 10 mg HS ABBY Administration Heparin Sodium (Porcine) 5,000 unit 11/30/18 14:15 12/01/18 13:29 Heparin - SQ Not Given TID ABBY Dextrose/Sodium Chloride 1,000 mls @ 100 mls/hr 12/01/18 12:30 12/01/18 13:26 D5-1/2ns - IV 07/04/19 22:29 100 mls/hr ASDIR ABBY Administration Azpot 1% Eye Drops 1 each 11/30/18 22:00 12/01/18 10:19 Non-Formulary Med OU 1 each BID ABBY Administration Combigan Eye Drops 1 each 11/30/18 22:00 12/01/18 10:18 Non-Formulary Med OU 1 each BID ABBY Administration Ranitidine HCl 300 mg 11/30/18 22:00 11/30/18 21:18 Zantac - PO 300 mg HS ABBY Administration Home Medications Medication Instructions Recorded Brimonidine Tartrate/Timolol 15 ml OP BID 04/29/18 [Combigan 0.2%-0.5% Eye Drops] Brinzolamide [Azopt] 15 ml OU TID 04/29/18 Donepezil HCl 10 mg PO HS 04/29/18 Atorvastatin Ca [Lipitor] 40 mg PO HS 11/30/18 Famotidine [Pepcid] 40 mg PO HS 11/30/18 Hydrochlorothiazide [Hctz -] 12.5 mg PO DAILY 11/30/18 Omeprazole 20 mg PO DAILY 11/30/18 Hepatic Panel Total Bilirubin 0.5 mg/dL (0.2-1) 12/01/18 07:29 AST 37 U/L (15-37) 12/01/18 07:29 ALT 68 U/L (13-61) H 12/01/18 07:29 Alkaline Phosphatase 83 U/L (45-117) 12/01/18 07:29 Albumin 3.2 g/dl (3.4-5.0) L 12/01/18 07:29 Laboratory Tests 11/30/18 12/01/18 08:00 07:29 Triglycerides 311 H Cholesterol 173 Total LDL Cholesterol 104 H HDL Cholesterol 42 Total Amylase [address] abdomen and pelvis showed no organomegaly, few diverticula in the colon, and no free air/fluid. Normal pancreas. US abdomen showed fatty infiltration of liver. ASSESSMENT AND PLAN: Patient is a 68 y/o Female with PMHx of pancreatitis, HLD, HTN, GERD, and glaucoma was admitted for acute pancreatitis. #Acute pancreatitis with Lipase of 1099, no further pain today, will advance her diet. # Acute hypernatemia: will continue IVF x 1 liter , will repeat the level in am #Asymptomatic bacteremia: positive UA 1+ leuk esterase with 518 bacteria, Cx pending but patient asymptomatic. #GERD: continue with your famotidine. #Hyperlipidemia: lipid panel as above, increased the dose of Lipitor from 40mg to 80mg atorvastatin. liver enzymes wnl #HTN: will hold off HCTZ Prophylaxis: DVT: Heparin 5000sq Visit type - Emergency Visit Emergency Visit: Yes ED Registration Date: 11/30/18 Care time: The patient presented to the Emergency Department on the above date and was hospitalized for further evaluation of their emergent condition. - New Patient This patient is new to me today: No - Critical Care Critical Care patient: No - Discharge Referral Referred to [facility] Med P.C.: No
[2018-12-01] MEDS: DONEPEZIL HCL 10 MG TABLET (FP) PO SCH (21:58)
[2018-12-01] MEDS: RANITIDINE HCL 150 MG TABLET (FP) PO SCH (21:59)
[2018-12-01] MEDS ORDERED: ATORVASTATIN CA 80 MG TABLET (FP) PO SCH (22:00)
[2018-12-02] MEDS: HEPARIN NA (PORCINE) 5,000 UNITS/ML 1ML VIAL SQ SCH (06:33)
[2018-12-02 07:23] LABS: BASO % 1.6 % (0-2.0); EOS % 3.2 % (0-4.5); HEMATOCRIT 37.1 % (32.4-45.2); HEMOGLOBIN 12.6 GM/dL (10.7-15.3); LYMPH % 46.3 % (8-40); MCH 29.5 pg (25.7-33.7); MEAN CELL VOLUME 86.9 fl (80-96); MEAN PLT VOLUME 10.2 fl (7.5-11.1); MONO % 9.3 % (3.8-10.2); NEUT % 39.6 % (42.8-82.8); PLATELET COUNT 266 K/MM3 (134-434); RBC 4.27 M/mm3 (3.60-5.2); RDW 13.5 % (11.6-15.6); WHITE BLOOD COUNT 7.3 K/mm3 (4.0-10.0)
[2018-12-02 08:05] LABS: ALBUMIN 3.1 g/dl (3.4-5.0); BILIRUBIN,TOTAL 0.3 mg/dL (0.2-1); BLOOD UREA NITROGEN 14.3 mg/dL (7-18); CALCIUM 7.3 mg/dL (8.5-10.1); CREATININE 0.7 mg/dL (0.55-1.3); MAGNESIUM 2.6 mg/dL (1.8-2.4); TOT PROT 6.2 g/dl (6.4-8.2)
[2018-12-02 09:31] LABS: PHOSPHOROUS 3.4 mg/dL (2.5-4.9)
[2018-12-02] MEDS ORDERED: PT OWN MED DRAWER 7, Y5N ONE (10:21)
[2018-12-02] MEDS: COMBIGAN EYE OU SCH (10:44)
[2018-12-02] MEDS: EYE OU SCH (10:45)
[2018-12-02] MEDS: [UNRECOGNIZED DRUG - OTHER] OU SCH (10:45)
[2018-12-02] MEDS ORDERED: SIMETHICONE 80 MG TAB.CHEW (FP) PO PRN (11:19)
[2018-12-02] MEDS ORDERED: amLODIPine BESYLATE 2.5 MG TABLET (FP) PO SCH (12:30)
[2018-12-02 13:09] VITALS: BP 149/76; PULSE 57; TEMP 97.7
--- NOTE | 2018-12-02 14:03 | DS ---
Physical Exam: SUBJECTIVE: Patient seen and examined at the bedside. No acute events overnight , vital signs stable and abdominal pain has resolved. OBJECTIVE: Vital Signs Period Temp Pulse Resp BP Sys/Ervin Pulse Ox Last 24 Hr 97.7 F-99.1 F 52-61 18-20 113-149/50-76 100-100 PHYSICAL EXAM GENERAL: The patient is awake, alert, and fully oriented, in no acute distress. HEAD: Normal with no signs of trauma. EYES: sclera anicteric, conjunctiva clear. NECK: supple. LUNGS: Breath sounds equal, clear to auscultation bilaterally, no wheezes, no crackles, no accessory muscle use. HEART: Regular rate and rhythm, S1, S2 without murmur, rub or gallop. ABDOMEN: Soft, nontender, slight distention (chronic) normoactive bowel sounds, no guarding, no rebound, no cullens/wasserman turners sign. EXTREMITIES: 2+ pulses, warm, well-perfused, no edema. SKIN: Warm, dry. LABS Laboratory Results - last 24 hr 12/02/18 12/02/18 06:09 06:09 WBC 7.3 RBC 4.27 Hgb 12.6 Hct 37.1 MCV 86.9 MCH 29.5 MCHC 34.0 RDW 13.5 Plt Count 266 MPV 10.2 Absolute Neuts (auto) 2.9 Neutrophils % 39.6 L Lymphocytes % 46.3 H Monocytes % 9.3 Eosinophils % 3.2 Basophils % 1.6 Nucleated RBC % 0 Sodium 141 Potassium 4.0 Chloride 107 Carbon Dioxide 28 Anion Gap 6 L BUN 14.3 Creatinine 0.7 Est GFR (CKD-EPI)AfAm 104.64 Est GFR (CKD-EPI)NonAf 90.29 Random Glucose 91 Calcium 7.3 L Phosphorus 3.4 Magnesium 2.6 H Total Bilirubin 0.3 AST 30 ALT 61 Alkaline Phosphatase 80 Total Protein 6.2 L Albumin 3.1 L Lipase 640 H HOSPITAL COURSE: Date of Admission:11/30/18 This is a 68 y/o F with a PMX of HLD, HTN, pancreatitis (04/17), GERD, and glaucoma who was admitted for acute pancreatitis. - Her lipase was found to be 1099 and amylase of 205. - CT abdomen and pelvis showed no organomegaly, few diverticula in the colon, and no free air/ fluid. Normal pancreas. - US abdomen showed fatty infiltration of liver. She was treated with IV Lactated ringers and bowel rest initially with advancement of diet as tolerated. Patient was noted to have some abdominal distention. - Patient is discharged on simeticone 160mg q4h PRN for her abdominal bloating. - We increased her lipitor to 80mg PO HS since her triglycerides were found to be elevated at 311 and her LDL was 104. - Patient was noted to have hypernatremia and it has since resolved after 1L IV hydration. - Patient had some asymptomatic bacteremia but culture was negative and no further treatment is necessary at this time. - Pt should avoid alcohol, fatty foods, and keep to a low Na diet. -Patient to continue with all home meds as prescribed. Date of Discharge: 12/02/18 Minutes to complete discharge: 35 Discharge Summary Reason For Visit: UTI,PANCREATITIS,ABD PAIN,BLOOD UREA ABNORMAL Condition: Improved - Instructions Diet, Activity, Other Instructions: You were admitted to the hospital for inflammation of your pancreas. While you were here we treated your pain and gave you fluids until the inflammation resolved. You are stable to go home. Please eat a low fat diet, avoiding any greasy foods or carbohydrates such as sugar, juices, fruits, gassy vegetables. No bread, for diary, no flour, no cereal. If you have any gas pain please take Simeticone 180 mg by mouth every four hours as needed to relieve your gas. Please make an appointment with the [facility] doctor within one week to continue to monitor the function of your pancreas. Please continue all your home medications as prescribed. Please return to the Emergency Department if you have any nausea, vomiting, chest pain, dizziness, or shortness of breath. [place] [facility] [facility] [place] [facility] [place]Provider Group] - 1 Week Derek Tiwari DO [Staff Physician] - 1 Week Lm Hagan MD [Primary Care Provider] - 1 Week Disposition: HOME - Home Medications Comprehensive Discharge Medication List: Ambulatory Orders Brimonidine Tartrate/Timolol [Combigan 0.2%-0.5% Eye Drops] 15 ml OP BID Brinzolamide [Azopt] 15 ml OU TID 04/29/18 Donepezil HCl 10 mg PO HS 04/29/18 Famotidine [Pepcid] 40 mg PO HS 11/30/18 Amlodipine Besylate [Norvasc -] 2.5 mg PO DAILY #30 tablet 12/02/18 Atorvastatin Ca [Lipitor] 80 mg PO HS #30 tablet 12/02/18 Simethicone 180 mg PO Q4H #60 capsule 12/02/18 This patient is new to me today: No Emergency Visit: Yes ED Registration Date: 11/30/18 Care time: The patient presented to the Emergency Department on the above date and was hospitalized for further evaluation of their emergent condition. Critical Care patient: No - Discharge Referral Referred to [facility] Med P.C.: No
--- NOTE | 2018-12-02 19:04 | PN ---
Teaching Attending Note Name of Resident: Floyd Lopez ATTENDING PHYSICIAN STATEMENT I saw and evaluated the patient. I reviewed the resident's note and discussed the case with the resident. I agree with the resident's findings and plan as documented. SUBJECTIVE: Patient is comfortable, wants to go home, no further pain. No fever or chills. OBJECTIVE: Vital Signs Temperature 97.7 F 12/02/18 09:00 Pulse Rate 57 L 12/02/18 09:00 Respiratory Rate 18 12/02/18 09:00 Blood Pressure 149/76 12/02/18 09:00 O2 Sat by Pulse Oximetry (%) 100 12/02/18 09:00 GENERAL: The patient is awake, alert, and fully oriented, in no acute distress. HEAD: Normal with no signs of trauma. EYES: PERRL, extraocular movements intact, sclera anicteric, conjunctiva clear. ENT: Ears normal, oropharynx clear without exudates, moist mucous membranes. NECK: Trachea midline, full range of motion, supple. LUNGS: Breath sounds equal, clear to auscultation bilaterally, no wheezes, no crackles, no accessory muscle use. HEART: Regular rate and rhythm, S1, S2 without murmur, rub or gallop. ABDOMEN: Soft, mild tenderness , ND, normoactive bowel sounds, no guarding, no rebound, no hepatosplenomegaly, no masses. EXTREMITIES: 2+ pulses, warm, well-perfused, no edema. NEUROLOGICAL: Cranial nerves II through XII grossly intact. Normal speech, gait is stable. PSYCH: Normal mood, normal affect. SKIN: Warm, dry, normal turgor, no rashes or lesions noted CBCD WBC 7.3 K/mm3 (4.0-10.0) 12/02/18 06:09 RBC 4.27 M/mm3 (3.60-5.2) 12/02/18 06:09 Hgb 12.6 GM/dL (10.7-15.3) 12/02/18 06:09 Hct 37.1 % (32.4-45.2) 12/02/18 06:09 MCV 86.9 fl (80-96) 12/02/18 06:09 MCHC 34.0 g/dl (32.0-36.0) 12/02/18 06:09 RDW 13.5 % (11.6-15.6) 12/02/18 06:09 Plt Count 266 K/MM3 (134-434) 12/02/18 06:09 MPV 10.2 fl (7.5-11.1) 12/02/18 06:09 CMP Sodium 141 mmol/L (136-145) 12/02/18 06:09 Potassium 4.0 mmol/L (3.5-5.1) 12/02/18 06:09 Chloride 107 mmol/L (98-107) 12/02/18 06:09 Carbon Dioxide 28 mmol/L (21-32) 12/02/18 06:09 Anion Gap 6 MMOL/L (8-16) L 12/02/18 06:09 BUN 14.3 mg/dL (7-18) 12/02/18 06:09 Creatinine 0.7 mg/dL (0.55-1.3) 12/02/18 06:09 Random Glucose 91 mg/dL (74-106) 12/02/18 06:09 Calcium 7.3 mg/dL (8.5-10.1) L 12/02/18 06:09 Total Bilirubin 0.3 mg/dL (0.2-1) 12/02/18 06:09 AST 30 U/L (15-37) 12/02/18 06:09 ALT 61 U/L (13-61) 12/02/18 06:09 Alkaline Phosphatase 80 U/L (45-117) 12/02/18 06:09 Total Protein 6.2 g/dl (6.4-8.2) L 12/02/18 06:09 Albumin 3.1 g/dl (3.4-5.0) L 12/02/18 06:09 CARDIAC ENZYMES Troponin I < 0.02 ng/ml (0.00-0.05) 11/30/18 08:00 Home Medications Medication Instructions Recorded Brimonidine Tartrate/Timolol 15 ml OP BID 04/29/18 [Combigan 0.2%-0.5% Eye Drops] Brinzolamide [Azopt] 15 ml OU TID 04/29/18 Donepezil HCl 10 mg PO HS 04/29/18 Famotidine [Pepcid] 40 mg PO HS 11/30/18 Amlodipine Besylate [Norvasc -] 2.5 mg PO DAILY #30 tablet 12/02/18 Atorvastatin Ca [Lipitor] 80 mg PO HS #30 tablet 12/02/18 Simethicone 180 mg PO Q4H #60 capsule 12/02/18 Laboratory Tests 11/30/18 12/01/18 12/02/18 08:00 07:29 06:09 Triglycerides 311 H Cholesterol 173 Total LDL Cholesterol 104 H HDL Cholesterol 42 Total Amylase 205 H Lipase 1099 H 640 H Home Medications Medication Instructions Recorded Brimonidine Tartrate/Timolol 15 ml OP BID 04/29/18 [Combigan 0.2%-0.5% Eye Drops] Brinzolamide [Azopt] 15 ml OU TID 04/29/18 Donepezil HCl 10 mg PO HS 04/29/18 Famotidine [Pepcid] 40 mg PO HS 11/30/18 Amlodipine Besylate [Norvasc -] 2.5 mg PO DAILY #30 tablet 12/02/18 Atorvastatin Ca [Lipitor] 80 mg PO HS #30 tablet 12/02/18 Simethicone 180 mg PO Q4H #60 capsule 12/02/18 Microbiology 11/30/18 07:44 Urine - Urine Clean Catch Urine Culture - Final NO GROWTH OBTAINED CT abdomen and pelvis showed no organomegaly, few diverticula in the colon, and no free air/fluid. Normal pancreas. US abdomen showed fatty infiltration of liver. ASSESSMENT AND PLAN: Patient is a 68 y/o Female with PMHx of pancreatitis, HLD, HTN, GERD, and glaucoma was admitted for acute pancreatitis. #Acute pancreatitis with Lipase of 1099-->640 today , will advance her diet if she tolerates will discharge the patient home. # Acute hypernatemia: s/p IVF is 141 today. #Asymptomatic bacteremia: positive UA 1+ leuk esterase with 518 bacteria, no growth in the final Cx. #GERD: continue with your famotidine. #Hyperlipidemia: lipid panel as above, increased the dose of Lipitor from 40mg to 80mg atorvastatin. liver enzymes wnl, will discharge the patient on Lipitor 80mg #HTN: will hold off HCTZ discharge patient home.
== END 2018-12-02 13:20 | disposition home or self-care (01) | DRG 439 ==
LOC: JER 05:26 → JERBED 10:14 → J5S 12:27
PROVIDERS: ADMIT Internal Medicine; ATTEND Internal Medicine
DX: K85.80 Other acute pancreatitis without necrosis or infection (principal); E87.0 Hyperosmolality and hypernatremia; R78.81 Bacteremia; I10 Essential (primary) hypertension; E78.5 Hyperlipidemia, unspecified; K21.9 Gastro-esophageal reflux disease without esophagitis; H40.9 Unspecified glaucoma; G43.809 Other migraine, not intractable, without status migrainosus
CPT/HCPCS: 36415; 74177-TC; 76705-TC; 80053; 80061; 81003; 82150; 83605; 83615; 83690; 83721; 83735; 84100; 84484; 84703; 85025; 85610; 87086; 93005; 93010; 99284-25; J0131; J7030

== ENCOUNTER 2020-10-12 12:45 | Observation (INO) | payer OTHER ==
[2020-10-12] MEDS ORDERED: LACTATED RINGERS SOLUTION 1000 ML INFUS.BAG IV ONE (13:28)
[2020-10-12 14:16] LABS: BASO % 0.9 % (0-2.0); EOS % 0.8 % (0-4.5); HEMATOCRIT 44.1 % (32.4-45.2); HEMOGLOBIN 14.9 GM/dL (10.7-15.3); LYMPH % 9.7 % (8-40); MCH 29.2 pg (25.7-33.7); MCHC 33.7 g/dl (32.0-36.0); MEAN CELL VOLUME 86.5 fl (80-96); MEAN PLT VOLUME 9.8 fl (7.5-11.1); MONO % 6.8 % (3.8-10.2); NEUT % 81.8 % (42.8-82.8); PLATELET COUNT 301 K/MM3 (134-434); RDW 13.6 % (11.6-15.6)
[2020-10-12 14:21] LABS: INR 0.93 (0.83-1.09); PROTHROMBIN TIME (PATIENT) 11.3 SEC (9.7-13.0)
[2020-10-12 14:24] LABS: ACTIVATED PTT 27.1 SECONDS (25.2-36.5)
[2020-10-12 15:05] LABS: CHLORIDE 101 mmol/L (98-107); SODIUM 136 mmol/L (136-145)
[2020-10-12 15:07] LABS: CALCIUM 9.2 mg/dL (8.5-10.1)
[2020-10-12 15:08] LABS: ALBUMIN 4.1 g/dl (3.4-5.0); ANION GAP 7 MMOL/L (8-16); BLOOD UREA NITROGEN 17.1 mg/dL (7-18); CO2 28 mmol/L (21-32); GLUCOSE,RANDOM 91 mg/dL (74-106)
[2020-10-12 15:11] LABS: CREATININE 0.7 mg/dL (0.55-1.3); SGOT/AST 22 U/L (15-37); SGPT/ALT 26 U/L (13-61)
[2020-10-12 15:13] LABS: BILIRUBIN,TOTAL 0.6 mg/dL (0.2-1); TOT PROT 8.2 g/dl (6.4-8.2)
[2020-10-12 15:14] LABS: ALK PHOS 93 U/L (45-117)
[2020-10-13] MEDS ORDERED: ACETAMINOPHEN 325 MG TABLET (FP) PO PRN (00:02)
[2020-10-13] MEDS ORDERED: MAG HYDROX/AL HYDROX/SIMETH 30 ML UNIT-DOSE CUP PO PRN (00:02)
[2020-10-13 07:12] LABS: HEMATOCRIT 39.2 % (32.4-45.2); HEMOGLOBIN 13.4 GM/dL (10.7-15.3); MCH 29.4 pg (25.7-33.7); MCHC 34.2 g/dl (32.0-36.0); MEAN PLT VOLUME 9.8 fl (7.5-11.1); PLATELET COUNT 287 K/MM3 (134-434); RBC 4.56 M/mm3 (3.60-5.2); RDW 13.7 % (11.6-15.6); WHITE BLOOD COUNT 7.4 K/mm3 (4.0-10.0)
[2020-10-13 07:42] LABS: BLOOD UREA NITROGEN 11.9 mg/dL (7-18); CALCIUM 8.7 mg/dL (8.5-10.1)
[2020-10-13 07:43] LABS: MAGNESIUM 2.1 mg/dL (1.8-2.4)
[2020-10-13 07:46] LABS: CREATININE 0.6 mg/dL (0.55-1.3); PHOSPHOROUS 3.8 mg/dL (2.5-4.9)
[2020-10-13 09:56] LABS: PH,URINE 7.5 (5.0-8.0); URINE APPEARANCE CLEAR; URINE BILIRUBIN NEGATIVE (NEGATIVE); URINE COLOR YELLOW; URINE GLUCOSE (UA) NEGATIVE (NEGATIVE); URINE KETONE TRACE (NEGATIVE); URINE LEUK ESTERASE NEGATIVE (NEGATIVE); URINE NITRITE NEGATIVE (NEGATIVE); URINE PROTEIN NEGATIVE (NEGATIVE); URINE UROBILINOGEN 0.2 mg/dL (0.2-1.0)
[2020-10-13] MEDS ORDERED: amLODIPine BESYLATE 10 MG TABLET (FP) PO SCH ×2 (10:15→14:37)
[2020-10-13] MEDS: CLOPIDOGREL BISULFATE 75 MG TABLET (FP) PO SCH (10:56)
[2020-10-13] MEDS: ENOXAPARIN NA (PORCINE) 40 MG/0.4 ML DISP.SYRIN SQ SCH (10:56)
[2020-10-13 11:29] LABS: CHOLESTEROL 304 mg/dL (50-200); LDL CHOLESTEROL (ONLY SJRH) 196 mg/dL (5-100); TRIGLYCERIDES 216 mg/dL (0-150)
[2020-10-13 11:32] LABS: HDL CHOLESTEROL 55 mg/dL (40-60)
[2020-10-13] MEDS ORDERED: amLODIPine BESYLATE 2.5 MG TABLET (FP) PO SCH (14:45)
[2020-10-13] MEDS: ATORVASTATIN CA 40 MG TABLET (FP) PO SCH (21:08)
[2020-10-13] MEDS ORDERED: ATORVASTATIN CA 40 MG TABLET (FP) PO SCH (22:00)
[2020-10-14] MEDS ORDERED: TETRAHYDROZOLINE HCL EYE DROPS OD PRN (07:17)
[2020-10-14 08:24] LABS: BASO % 1.9 % (0-2.0); EOS % 4.9 % (0-4.5); HEMATOCRIT 39.2 % (32.4-45.2); HEMOGLOBIN 13.4 GM/dL (10.7-15.3); LYMPH % 40.8 % (8-40); MCH 29.5 pg (25.7-33.7); MCHC 34.1 g/dl (32.0-36.0); MEAN CELL VOLUME 86.5 fl (80-96); MEAN PLT VOLUME 9.4 fl (7.5-11.1); MONO % 12.6 % (3.8-10.2); NEUT % 39.8 % (42.8-82.8); PLATELET COUNT 272 K/MM3 (134-434); RBC 4.53 M/mm3 (3.60-5.2); RDW 13.7 % (11.6-15.6); WHITE BLOOD COUNT 6.5 K/mm3 (4.0-10.0)
[2020-10-14 08:51] LABS: BLOOD UREA NITROGEN 17.2 mg/dL (7-18); CALCIUM 8.5 mg/dL (8.5-10.1); MAGNESIUM 2.1 mg/dL (1.8-2.4)
[2020-10-14 08:55] LABS: BILIRUBIN,TOTAL 0.3 mg/dL (0.2-1); CREATININE 0.6 mg/dL (0.55-1.3); TOT PROT 6.8 g/dl (6.4-8.2)
[2020-10-14 08:57] LABS: ALBUMIN 3.3 g/dl (3.4-5.0)
[2020-10-14] MEDS: ENOXAPARIN NA (PORCINE) 40 MG/0.4 ML DISP.SYRIN SQ SCH (09:06)
[2020-10-14] MEDS: CLOPIDOGREL BISULFATE 75 MG TABLET (FP) PO SCH (09:06)
[2020-10-14] MEDS: LISINOPRIL 5 MG TABLET PO SCH (09:07)
[2020-10-14 14:53] VITALS: BMI 27.9
[2020-10-14] MEDS: ATORVASTATIN CA 40 MG TABLET (FP) PO SCH (22:29)
[2020-10-14] MEDS ORDERED: PRAMIPEXOLE DIHYDROCHLORIDE 0.25 MG TABLET PO SCH (23:00)
[2020-10-14 23:42] VITALS: TEMP 98.6
[2020-10-15 08:13] VITALS: BP 146/59; PULSE 67
[2020-10-15] MEDS: LISINOPRIL 5 MG TABLET PO SCH (10:04)
[2020-10-15] MEDS: ENOXAPARIN NA (PORCINE) 40 MG/0.4 ML DISP.SYRIN SQ SCH (10:04)
[2020-10-15] MEDS: CLOPIDOGREL BISULFATE 75 MG TABLET (FP) PO SCH (10:05)
== END 2020-10-15 13:35 | disposition home or self-care (01) ==
LOC: JER 12:45 → INTOOBSV 16:48 → UNDOADMOB 16:48 → JERBED 16:48 → J4W 10-13 00:29 → JERBED 10-13 00:29 → J4W 10-14 09:01
PROVIDERS: ADMIT Hospitalist; ATTEND Nurse Practitioner Acute Care
PROC: 3E023GC Introduction of Other Therapeutic Substance into Muscle, Percutaneous Approach (ICD-10-PCS; principal; 2020-10-14)
PROC: 3E0337Z Introduction of Electrolytic and Water Balance Substance into Peripheral Vein, Percutaneous Approach (ICD-10-PCS; 2020-10-14)
DX: I73.9 Peripheral vascular disease, unspecified (principal); G62.9 Polyneuropathy, unspecified; R56.9 Unspecified convulsions; R73.03 Prediabetes; Z88.0 Allergy status to penicillin; I10 Essential (primary) hypertension; M19.90 Unspecified osteoarthritis, unspecified site; Z29.9 Encounter for prophylactic measures, unspecified
CPT/HCPCS: 36415; 70450-TC; 71046-TC-FY; 80048; 80053; 80061; 81003; 82150; 82550; 83036; 83605; 83690; 83721; 83735; 84100; 84146; 84443; 84484; 85025; 85027; 85610; 85730; 87086; 87804; 93005; 93010; 93306-TC; 93880-TC; 96360; 96372; 97116-GP; 97161-GP; 99285-25; C9803; G0378; U0003; U0005

== ENCOUNTER 2020-10-28 16:29 | Emergency (ER) | payer OTHER ==
[2020-10-28 16:52] VITALS: BP 145/63; PULSE 65; TEMP 98.7; BMI 32.0
[2020-10-28 17:54] LABS: EPI CELLS 15 /uL (0-25.1); HYALINE CASTS 0 /uL (0-3.1); URINE APPEARANCE CLEAR; URINE BACTERIA 730 /uL (0-1359); URINE BILIRUBIN NEGATIVE (NEGATIVE); URINE COLOR YELLOW; URINE GLUCOSE (UA) NEGATIVE (NEGATIVE); URINE KETONE NEGATIVE (NEGATIVE); URINE LEUK ESTERASE TRACE (NEGATIVE); URINE NITRITE NEGATIVE (NEGATIVE); URINE PROTEIN NEGATIVE (NEGATIVE); URINE RBC 2 /uL (0-23.9); URINE UROBILINOGEN 0.2 mg/dL (0.2-1.0); URINE WBC 14 /uL (0-25.8)
== END 2020-10-28 18:34 | disposition home or self-care (01) ==
LOC: JER 16:29
DX: R10.84 Generalized abdominal pain (principal)
CPT/HCPCS: 81003; 87086; 99283-25